=== PATIENT | female | born 1960 | race Caucasian/White ===

== ENCOUNTER 2023-07-09 13:33 | Inpatient (IN) | payer OTHER ==
--- OUTSIDE RECORDS SUMMARY | 2023-07-09 13:39 | XMS REPORT | Continuity of Care Document ---
:1960 Author Organization [facility] t Address [address] [place] [address]. [address] [place] [address] Care Team Providers Name Role Phone ALTAF CORNELL Primary Care Physician Unavailable January Bojorquez RN Attending Clinician Unavailable KEVIN DORAN Attending Clinician Unavailable Kevin Doran DDS Attending Clinician JAKE ORTIZ Attending Clinician Unavailable Jake James Attending Clinician NÉSTOR BAUM Attending Clinician Unavailable Néstor Baum MD Attending Clinician JANIE FELDMAN Attending Clinician Unavailable Sabiha Phoenix MD Attending Clinician Bert Farley RN Attending Clinician Unavailable Amarjit Hernandez DO Attending Clinician Alka Valle MD Attending Clinician AMARJIT HERNANDEZ Attending Clinician Unavailable Doctor Unassigned, [place] Attending Clinician Unavailable KEVIN DORAN Admitting Clinician Unavailable Kevin Doran DDS Admitting Clinician Alka Valle MD Admitting Clinician ALKA VALLE Admitting Clinician Unavailable Payers Payer Name Policy Type Policy Number Effective Date Expiration Date S ource MEDICARE PART A [id number] 2016 \\T\\ B 00:00:00 Problems Condition Condition Condition Status Onset Resolution Last Treating Co mments Source Name Details Category Date Date Treatment Clinician Date Cellulitis Cellulitis Disease Active U nivers and and 4-14 ity of abscess [place] oral soft oral soft 00 [place] tissues tissues Branch Swelling Swelling Disease Active Overview: Un [place] of of 4-13 Formatt[place] ity of mandible mandible 00:00: g of this Adolfo as 00 note Medical might be Branch different from the original. 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 00:00: 00 Medical Branch Flushing Flushing Disease Active Unive rs 8-16 ity of 00:00: [place] 00 Medical Branch Weight Weight Disease Active Univers loss loss 8-16 ity of 00:00: [place] 00 Medical Branch Postmenopa Postmenopa Disease Active U nivers use use 8-16 ity of 00:00: [place] 00 Medical Branch Allergies, Adverse Reactions, Alerts Allergy Allergy Status Severity Reaction(s) Onset Inactive Treating Comm ents Source Name Type Date Date Clinician LISINOPR DRUG Active Other-Cmnt 2018-11 Univ ers [place] INGREDI 0-18 ity of 00:00: [place] 00 Medical Branch Lisinopr Propensi Active Other - See 2018-11 Severe U nivers il ty to comments 0-18 [place] ity o f adverse 00:00: a [place] reaction Medical s Branch PENICILL Drug Active Swelling Univer s INS Class 8-16 ity of 00:00: [place] 00 Medical Branch Penicill Propensi Active Swelling Univ ers ins ty to 8-16 ity of adverse 00:00: [place] reaction 00 Medical s Branch Social History Social Habit Start Date Stop Date Quantity Comments Source Exposure to Not sure University SARS-CoV-2 [place] [facility] (event) Branch Alcohol intake 2022-03-08 2022-03-08 Ex-drinker [place] of 00:00:00 00:00:00 (finding) [place] [facility] Tobacco use and 2021-01-02 2021-01-02 Current user Univers ity of exposure 00:00:00 00:00:00 [place] [facility] History SDOH 2021-01-02 2021-01-02 3 University o f Financial 00:00:00 00:00:00 [facility] Branch History SDOH Food 2021-01-02 2021-01-02 2 Univers ity of Worry 00:00:00 00:00:00 [facility] Branch History SDOH Food 2021-01-02 2021-01-02 2 Univers ity of Scarcity 00:00:00 00:00:00 [place] [facility] History [facility] 2021-01-02 2021-01-02 1 University o f Transport Med 00:00:00 00:00:00 [facility] [place] [facility] al Branch History [facility] 2021-01-02 2021-01-02 1 [place] o f Transport Non-Med 00:00[facility]00 [facility] Comment 2021-01-02 2021-01-02 Former smoker Univ sity of 00:00:00 00:00:00 who recently [place] [facility] started again [place] Sex Assigned At [birth year] Universit y of 00:00:00 00:00:00 [place] [facility] Smoking Status Start Date Stop Date Source Light tobacco smoker 2021-01-02 00:00:00 Univers ity [facility] Former smoker 2020-06-12 00:00:00 2020-06-12 00:00:00 Universi ty [facility] Medications Ordered Filled Start Stop Current Ordering Indication Dosage Frequency Signature Comments Components Source Medication Medication Date Date Medication? Clinician (SIG) Name Name PARoxetine Yes 30mg Take 30 mg U nivers (PAXIL) 20 4-15 by mouth ity o f mg tablet 14:53: daily. [place] 40 [facility] budesonide- Yes 2{puff} Inhale 2 Univers formoterol 4-15 Puffs 2 ity of (SYMBICORT) 14:53: (two) [place] 80-4.5 40 times Medical mcg/actuati daily. Branch on inhaler albuterol-i Yes 1{puff} Inhale 1 Univers pratropium 4-15 Puff 4 ity of (COMBIVENT 14:53: (four) [place] RESPIMAT) 40 times Medical 20-100 daily. Branch mcg/actuati on inhaler Iron-Vit Yes [facility] 4-15 mouth. ity of [id number] 14:53: [place] Acid (IRON 40 Medical 100 PLUS) Branch 100-250-25- 1 mg-mg-mcg-m g per tablet ibuprofen Yes 600mg Take 600 Uni vers 600 mg 4-15 mg by ity of tablet 14:53: mouth [place] 40 daily. Medical Branch traZODone Yes 100mg Take 100 Uni vers 100 mg 4-15 mg by ity of tablet 14:53: mouth at [place] 40 bedtime. Medical Branch PARoxetine Yes 30mg Take 30 mg U nivers (PAXIL) 20 4-15 by mouth ity o f mg tablet 14:53: daily. [place] 40 Medical Branch budesonide- Yes 2{puff} Inhale 2 Univers formoterol 4-15 Puffs 2 ity of (SYMBICORT) 14:53: (two) [place] 80-4.5 40 times Medical mcg/actuati daily. Branch on inhaler albuterol-i Yes 1{puff} Inhale 1 Univers pratropium 4-15 Puff 4 ity of (COMBIVENT 14:53: (four) [place] RESPIMAT) 40 times Medical 20-100 daily. Branch mcg/actuati on inhaler Iron-Vit Yes [facility] C-Vit 4-15 mouth. ity of [id number]-[id number] 14:53: [place] Acid (IRON 40 Medical 100 PLUS) Branch 100-250-25- 1 mg-mg-mcg-m g per tablet ibuprofen Yes 600mg Take 600 Uni vers 600 mg 4-15 mg by ity of tablet 14:53: mouth [place] 40 daily. Medical Branch traZODone Yes 100mg Take 100 Uni vers 100 mg 4-15 mg by ity of tablet 14:53: mouth at [place] 40 bedtime. Medical Branch PARoxetine Yes 30mg Take 30 mg U nivers (PAXIL) 20 4-15 by mouth ity o f mg tablet 14:53: daily. [place] 40 Medical Branch budesonide- Yes 2{puff} Inhale 2 Univers formoterol 4-15 Puffs 2 ity of (SYMBICORT) 14:53: (two) [place] 80-4.5 40 times Medical mcg/actuati daily. Branch on inhaler albuterol-i Yes 1{puff} Inhale 1 Univers pratropium 4-15 Puff 4 ity of (COMBIVENT 14:53: (four) [place] RESPIMAT) 40 times Medical 20-100 daily. Branch mcg/actuati on inhaler Iron-Vit Yes Take by Univ s C-Vit 4-15 mouth. ity of [id number]-[id number] 14:53: [place] Acid (IRON 40 Medical 100 PLUS) Branch 100-250-25- 1 mg-mg-mcg-m g per tablet ibuprofen Yes 600mg Take 600 Uni vers 600 mg 4-15 mg by ity of tablet 14:53: mouth [place] 40 daily. Medical Branch traZODone Yes 100mg Take 100 Uni vers 100 mg 4-15 mg by ity of tablet 14:53: mouth at [place] 40 bedtime. Medical Branch nicotine Yes 1{patch 1 Patch, Un [place]dal[place] (NICODERM) -15 } Topical, ity o f 7 mg/24 hr 04:30: Administer [place] patch 1 00 over 24 Medical Patch Hours, Branch Q24H, First dose (after last modificati on) on Fri03/07/22 at 2330, Until Discontinu ed, Routine nicotine 202- No 1{patch 1 Patch, U nivers (NICODERM) 4-15 04-15 } Topical, ity of 7 mg/24 hr 04:30: 21:53 Administer [place] patch 1 00 :42 over 24 Medical Patch Hours, Branch Q24H, First dose (after last modificati on) on Fri03/07/22 at 2330, Until Discontinu ed, Routine chlorhexidi 2021- No [id number] 15mL Swish and Univers ne 0.12 % 4-15 04-30 spit out ity o f mouthwash 00:00: 04:59 15 mL 2 [place] 00 :00 (two) Medical times Branch daily for 14 days. chlorhexidi 2021- No [id number] 15mL Swish and Univers ne 0.12 % 4-15 04-30 spit out ity o f mouthwash 00:00: 04:59 15 mL 2 [place] 00 :00 (two) Medical times Branch daily for 14 days. chlorhexidi 2021- No [id number] 15mL Swish and Univers ne 0.12 % 4-15 04-30 spit out ity o f mouthwash 00:00: 04:59 15 mL 2 [place] 00 :00 (two) Medical times Branch daily for 14 days. clindamycin 2021- No [id number] 300mg Take 1 Univers 300 mg 4-15 -23 capsule by ity of capsule 00:00: 04:59 mouth 4 [place] 00 :00 (four) Medical times Branch daily for 7 days. clindamycin 2021- No [id number] 300mg Take 1 Univers 300 mg 4-15 -23 capsule by ity of capsule 00:00: 04:59 mouth 4 [place] 00 :00 (four) Medical times Branch daily for 7 days. clindamycin 2021- No [id number] 300mg Take 1 Univers 300 mg 4-15 -23 capsule by ity of capsule 00:00: 04:59 mouth 4 [place] 00 :00 (four) Medical times Branch daily for 7 days. HYDROcodone 2021- No 4647 1{tbl} Take 1 U nivers -acetaminop 4-15 04-20 tablet by it y of hen 5-325 00:00: 04:59 mouth [place] mg tablet 00 :00 every 6 Medical (six) Branch hours as needed for Pain (scale 4-6) for up to 4 days. Indication s: acute pain HYDROcodone No 4647 1{tbl} Take 1 U nivers -acetaminop 4-15 04-20 tablet by it y of hen 5-325 00:00: 04:59 mouth [place] mg tablet 00 :00 every 6 Medical (six) Branch hours as needed for Pain (scale 4-6) for up to 4 days. Indication s: acute pain HYDROcodone 2021- No 4647 1{tbl} Take 1 U nivers -acetaminop 03-08-20 tablet by it y of hen 5-325 00:00: 04:59 mouth [place] mg tablet 00 :00 every 6 Medical (six) Branch hours as needed for Pain (scale 4-6) for up to 4 days. Indication s: acute pain lactated Yes 1000mL at 75 Univer s ringers IV 4-14 mL/hr, ity of infusion 23:30: 1,000 mL, [place] 1,000 mL 00 IV Medical Infusion, Branch CONTINUOUS , Starting on [place] 03/07/22 at 1830, Until Discontinu ed, Routine, PACU lactated 2021- No 1000mL at 75 Unive rs ringers IV 03-07-15 mL/hr, ity of infusion 23:30: 21:53 1,000 mL, [place] as 1,000 mL 00 :42 IV Medical Infusion, Branch CONTINUOUS , Starting on [place] 03/07/22 at 1830, Until 03/08/22 at 1653, Routine, PACU HYDROmorphO 2021- No .2mg 0.2 mg, Un [place]dalena ne 03-07- Slow IV ity of (DILAUDID) 23:26: 00:41 Push, [place] injection 03 :00 Q5MIN PRN, Medi [place] 0.2 mg 10 doses, Branch Starting on [place] 03/07/22 at 1826, Until Discontinu ed, Routine, Pain (scale 7-10), PACU
Us e approved by (Faculty): PACU USE -ANESTHESI A SERVICE-HY DROMORPHON E INJECTIONS gabapentin Yes 300mg 300 mg, Uni vers (NEURONTIN) 4-14 Oral, ity of capsule 300 14:00: DAILY, [place] mg 00 First dose Medical on [place] Branch 03/07/22 at 0900, Until Discontinu ed, Routine gabapentin 2021- No 300mg 300 mg, Un [place] (NEURONTIN) 03-07-15 Oral, ity of capsule 300 14:00: 21:53 DAILY, [place] mg 00 :42 First dose Medical on [place] Branch 03/07/22 at 0900, Until Discontinu ed, Routine chlorhexidi 0 Yes 15mL 15 mL, Univ ers ne 4-14 Oral ity of (PERIDEX) 13:00: ([place] 0.12 % 00 Spit Out), Medical mouthwash BID, First Bran ch 15 mL dose on [place] 03/07/22 at 0800, Until Discontinu ed, Routine budesonide- 0 Yes 2{puff} 2 Puff, Univers formoteroL -14 Inhalation ity of (SYMBICORT) 13:00: , BID, [place] 80-4.5 00 First dose Medical mcg/actuati on [facility] Branch on inhaler 03/07/22 at 2 Puff 0800, Until Discontinu ed, Routine chlorhexidi 2021- No 15mL 15 mL, Uni vers ne 14 04-15 Oral ity of (PERIDEX) 13:00: 21:53 ([place] 0.12 % 00 :42 Spit Out), Medical mouthwash BID, First Bran ch 15 mL dose on [place] 03/07/22 at 0800, Until Discontinu ed, Routine budesonide- 0 2- No 2{puff} 2 Puff, Univers formoteroL 03-07 04-15 Inhalation it y of (SYMBICORT) 13:00: 21:53 , BID, [place] 80-4.5 00 :42 First dose Medical mcg/actuati on [facility] Branch on inhaler 03/07/22 at 2 Puff 0800, Until Discontinu ed, Routine lactated 0 2021- No 1000mL at 100 [facility] ers ringers IV 03-07 04-14 mL/hr, ity of infusion 10:45: 23:28 1,000 mL, [place] 1,000 mL 00 :48 IV Medical Infusion, Branch CONTINUOUS , Starting on [place] 03/07/22 at 0545, Until [facility] 03/07/22 at 1828, Routine naloxone Yes .1mg 0.1 mg, Univer s (NARCAN) 14 Slow IV ity of injection 10:34: Push, PRN [place] 0.1 mg 53 - SEE Medical INSTRUCTIO Branch NS, Starting on [place] 03/07/22 at 0534, Until Discontinu ed, Routine, Sedation/R espiratory Depression , See admin instructio ns. morpHINE 2021- No 2mg 2 mg, Slow Un [place] injection 2 03-0716 IV Push, ity of mg 10:34: 10:33 Q3HPRN, [place] 53 :53 Starting Medical on [facility] Branch 03/07/22 at 0534, Until 03/09/22 at 0533, Routine, Pain (scale 7-10) naloxone 2021- No .1mg 0.1 mg, Unive rs (NARCAN) 03-07 Slow IV ity of injection 10:34: 21:53 Push, PRN [place] 0.1 mg 53 :42 - SEE Medical INSTRUCTIO [place] NS, Starting on [place] 03/07/22 at 0534, Until 03/08/22 at 1653, Routine, Sedation/R espiratory Depression , See admin instructio ns. morpHINE 2021- No 2mg 2 mg, Slow Un [place] injection 2 03-07 IV Push, ity of mg 10:34: 21:53 Q3HPRN, [place] 53 :42 Starting Medical on [facility] Branch 03/07/22 at 0534, Until 03/08/22 at 1653, Routine, Pain (scale 7-10) HYDROcodone Yes 1{tbl} 1 tablet, Univers -acetaminop 4-14 Oral, ity of hen (NORCO 10:34: Q6HPRN, [place] 5) 5-325 mg 50 Starting Medi [place] tablet 1 on [facility] tablet 03/07/22 at 0534, Until Discontinu ed, Routine, Pain (scale 4-6) HYDROcodone 0 2021- No 1{tbl} 1 tablet, Univers -acetaminop 4-07 03-15 Oral, ity of hen (NORCO 10:34: 21:53 Q6HPRN, [place] 5) 5-325 mg 50 :42 Starting Medi [place] tablet 1 on [facility] tablet 03/07/22 at 0534, Until 03/08/22 at 1653, Routine, Pain (scale 4-6) ibuprofen Yes 600mg 600 mg, Univ ers (ADVIL 4-14 Oral, ity of CHILDREN'S) 10:34: Q6HPRN, [place] 100 mg/5 mL 45 Starting Medi [place] oral on [facility] Branch suspension 03/07/22 at 600 mg 0534, Until Discontinu ed, Routine, Pain (scale 1-3) ibuprofen 2021- No 600mg 600 mg, Uni vers (ADVIL 03-07-15 Oral, ity of CHILDREN'S) 10:34: 21:53 Q6HPRN, [place] 100 mg/5 mL 45 :42 Starting Medi [place] oral on [facility] Branch suspension 03/07/22 at 600 mg 0534, Until 03/08/22 at 1653, Routine, Pain (scale 1-3) ondansetron Yes 4mg 4 mg, Slow Univers (ZOFRAN 4-14 IV Push, ity of (PF)) 10:34: Q4HPRN, [place] injection 4 43 Starting Medi [place] mg on [facility] Branch 03/07/22 at 0534, Until Discontinu ed, Routine, Nausea and Vomiting (N/V) ondansetron 2021- No 4mg 4 mg, Slow Univers (ZOFRAN 03-07-15 IV Push, ity of (PF)) 10:34: 21:53 Q4HPRN, [place] injection 4 43 :42 Starting Medi [place] mg on [facility] Branch 03/07/22 at 0534, Until Fri03/08/22 at 1653, Routine, Nausea and Vomiting (N/V) nicotine Yes 1{patch 1 Patch, Un [place] (NICODERM) 03-07 } Topical, ity o f 7 mg/24 hr 05:15: Administer [place] patch 1 00 over 24 Medical Patch Hours, Branch Q24H, First dose on [facility] 03/07/22 at 0015, Until Discontinu ed, Routine iopamidol 0 2021- No [id number] 100mL 100 mL, Univers (ISOVUE 03-0714 Intravenou ity o f 370-500 mL) 03:45: 02:37 s, ONCE, 1 [place] injection 00 :00 dose, On Medica l 100 mL Wed Branch 03/06/22 at 2245, Routine ipratropium 2020-11 Yes 3mL 3 mL, Unive rs -albuteroL 11-24 Inhalation ity of (DUONEB) 13:00: , QID, [place] 0.5 mg-3 00 First dose Medic al mg(2.5 mg on Mon Branch base)/3 mL 09/24/21 at nebulizer 0800, solution 3 Until mL Discontinu ed, Routine ipratropium 2020-11 Yes 3mL 3 mL, Unive rs -albuteroL 11-24 Inhalation ity of (DUONEB) 13:00: , QID, [place] 0.5 mg-3 00 First dose Medic al mg(2.5 mg on Mon Branch base)/3 mL 09/24/21 at nebulizer 0800, solution 3 Until mL Discontinu ed, Routine iohexol 2020-11- No [id number] 100mL 100 mL, Univers (OMNIPAQUE 11-24 Intravenou it y of 350 05:30: 05:21 s, ONCE, 1 [place] BULK-100 00 :00 dose, On Medical mL) Mon Branch injection 09/24/21 at 100 mL 0030, Routine methylpredn 2020-11- No 125mg 125 mg, IV Univers isolone sod 11-24 Piggyback, i ty of succ 04:30: 03:27 ONCE, 1 [place] (SOLU-MEDRO 00 :00 dose, On Medi [place] L) Sun Branch injection 09/23/21 125 mg at 2330, STAT HYDROcodone 2020- No 1{tbl} 1 tablet, [facility] -acetaminop 07-17 08-24 Oral, ity of hen (NORCO) 02:33: 02:37 ONCE, 1 [place] 10-325 mg 00 :00 dose, Mon Medic al tablet 1 07/16/21 at Bran h tablet 2145, Routine methylPREDN 0 Yes [id number] Take by Univers ISolone 4 07-16 9107 mouth ity of mg tablets 00:00: SEE-INSTRU [place] 00 CTIONS. Medical follow Branch package directions methylPREDN 0 Yes [id number] Take by Univers ISolone 4 07-16 9107 mouth ity of mg tablets 00:00: SEE-INSTRU [place] 00 CTIONS. Medical follow Branch package directions methylPREDN 2020-0 Yes [id number] Take by [facility] 4 07-16 9107 mouth ity of mg tablets 00:00: SEE-INSTRU [place] 00 CTIONS. Medical follow Branch package directions methylPREDN 2020-0 Yes [id number] Take by [facility] 4 07-1607 mouth ity of mg tablets 00:00: SEE-INSTRU [place] 00 CTIONS. Medical follow Branch package directions methylPREDN 2020-0 Yes [id number] Take by [facility] 4 07-1607 mouth ity of mg tablets 00:00: SEE-INSTRU [place] 00 CTIONS. Medical follow Branch package directions methylPREDN 2020-0 Yes [id number] Take by [facility] 4 07-1607 mouth ity of mg tablets 00:00: SEE-INSTRU [place] 00 CTIONS. Medical follow Branch package directions HYDROcodone 2020- No [id number] 1{tbl} Take 1 U nivers -acetaminop 07-16 tablet by it y of hen (NORCO) 00:00: 04:59 mouth [place] 7.5-325 mg 00 :00 every 8 Medica l per tablet (eight) Branch hours as needed for Pain for up to 7 days. Indication s: acute pain omeprazole Yes 20mg 20 mg, Unive rs (PRILOSEC) 01-05 Oral, ity of capsule 20 15:00: DAILY, [place] mg 00 First dose Medical on Fri Branch 01/05/21 at 0900, Until Discontinu ed, Routine predniSONE 2020- No 40mg 40 mg, Univ ers (DELTASONE) 01-05 Oral, ity of tablet 40 15:00: 14:59 DAILY, 5 [place] mg 00 :00 doses, Medical First dose Branch on Fri01/05/21 at 0900, Last dose on Fri01/09/21 at 0900, Routine predniSONE 2020- No [id number] 40mg Take 2 Univers 20 mg 01-0518 tablets by ity of tablet 00:00: 05:59 mouth [place] 00 :00 daily for Medical 5 days. Branch predniSONE 2020- No [id number] 40mg Take 2 Univers 20 mg 2-12 02-18 tablets by ity of tablet 00:00: 05:59 mouth [place] 00 :00 daily for Medical 5 days. Branch PARoxetine Yes 30mg Take 30 mg U nivers (PAXIL) 20 2-11 by mouth ity o f mg tablet 21:15: daily. [place] [address] Medical Branch budesonide- Yes 2{puff} Inhale 2 Univers formoterol 2-11 Puffs 2 ity of (SYMBICORT) 21:15: (two) [place] 80-4.5 31 times Medical mcg/actuati daily. Branch on inhaler albuterol-i Yes 1{puff} Inhale 1 Univers pratropium 2-11 Puff 4 ity of (COMBIVENT 21:15: (four) [place] RESPIMAT) 31 times Medical 20-100 daily. Branch mcg/actuati on inhaler Iron-Vit Yes Take by Univ s C-Vit 2-11 mouth. ity of I77-Mapkh 21:15: [place] Acid (IRON 31 Medical 100 PLUS) Branch 100-250-25- 1 mg-mg-mcg-m g per tablet ibuprofen Yes 600mg Take 600 Uni vers 600 mg 2-11 mg by ity of tablet 21:15: mouth [place] 31 daily. Medical Branch traZODone Yes 100mg Take 100 Uni vers 100 mg 2-11 mg by ity of tablet 21:15: mouth at [place] [address] bedtime. Medical Branch PARoxetine Yes 30mg Take 30 mg U nivers (PAXIL) 20 2-11 by mouth ity o f mg tablet 21:15: daily. [place] [address] Medical Branch budesonide- Yes 2{puff} Inhale 2 Univers formoterol 2-11 Puffs 2 ity of (SYMBICORT) 21:15: (two) [place] 80-4.5 31 times Medical mcg/actuati daily. Branch on inhaler albuterol-i Yes 1{puff} Inhale 1 Univers pratropium 2-11 Puff 4 ity of (COMBIVENT 21:15: (four) [place] RESPIMAT) 31 times Medical 20-100 daily. Branch mcg/actuati on inhaler Iron-Vit Yes Take by [facility] C-Vit 2-11 mouth. ity of [id number]-Vbvjc 21:15: [place] Acid (IRON 31 Medical 100 PLUS) Branch 100-250-25- 1 mg-mg-mcg-m g per tablet ibuprofen Yes 600mg Take 600 Uni vers 600 mg 2-11 mg by ity of tablet 21:15: mouth [place] 31 daily. Medical Branch traZODone Yes 100mg Take 100 Uni vers 100 mg 2-11 mg by ity of tablet 21:15: mouth at [place] [address] bedtime. Medical Branch PARoxetine Yes 30mg Take 30 mg U nivers (PAXIL) 20 2-11 by mouth ity o f mg tablet 21:15: daily. [place] [address] Medical Branch budesonide- Yes 2{puff} Inhale 2 Univers formoterol 2-11 Puffs 2 ity of (SYMBICORT) 21:15: (two) [place] 80-4.5 31 times Medical mcg/actuati daily. Branch on inhaler albuterol-i Yes 1{puff} Inhale 1 Univers pratropium 2-11 Puff 4 ity of (COMBIVENT 21:15: (four) [place] RESPIMAT) 31 times Medical 20-100 daily. Branch mcg/actuati on inhaler Iron-Vit Yes Take by [facility] C-Vit 2-11 mouth. ity of A52-Hmetu 21:15: [place] Acid (IRON 31 Medical 100 PLUS) Branch 100-250-25- 1 mg-mg-mcg-m g per tablet ibuprofen Yes 600mg Take 600 Uni vers 600 mg 2-11 mg by ity of tablet 21:15: mouth [place] 31 daily. Medical Branch traZODone Yes 100mg Take 100 Uni vers 100 mg 2-11 mg by ity of tablet 21:15: mouth at [place] [address] bedtime. Medical Branch levoFLOXaci 2020- No 500mg 500 mg, U nivers n 2-11 02-16 Oral, Q24H ity of (LEVAQUIN) 20:15: 20:14 ABX, 5 [place] tablet 500 00 :00 doses, Medical mg First dose Branch on 01/04/21 at 1415, Last dose on 01/08/21 at 1415, KELLEN
Re ason for Anti-Infec tive: Empiric Therapy for Suspected Infection< br>Empiric Therapy Site: Urine
D uration of therapy: 72 hours albuterol-i Yes 1{puff} 1 Puff, Univers pratropium 2-11 Inhalation ity of (COMBIVENT 18:00: , QID, [place] RESPIMAT) 00 First dose Medi [place] 20-100 on [place] Branch mcg/actuati 01/04/21 at on inhaler 1200, 1 Puff Until Discontinu ed, Routine
Is this order for a patient with suspected or confirmed COVID-19 infection? No
Does this order have Pulmonary/ Critical Care approval? Yes PARoxetine Yes 30mg Take 30 mg U nivers (PAXIL) 20 2-11 by mouth ity o f mg tablet 15:15: daily. [place] [address] Medical Branch budesonide- Yes 2{puff} Inhale 2 Univers formoterol 2-11 Puffs 2 ity of (SYMBICORT) 15:15: (two) [place] 80-4.5 31 times Medical mcg/actuati daily. Branch on inhaler albuterol-i Yes 1{puff} Inhale 1 Univers pratropium 2-11 Puff 4 ity of (COMBIVENT 15:15: (four) [place] RESPIMAT) 31 times Medical 20-100 daily. Branch mcg/actuati on inhaler Iron-Vit Yes Take by [facility] C-Vit 2-11 mouth. ity of Y79-Foiaj 15:15: [place] Acid (IRON 31 Medical 100 PLUS) Branch 100-250-25- 1 mg-mg-mcg-m g per tablet ibuprofen Yes 600mg Take 600 Uni vers 600 mg 2-11 mg by ity of tablet 15:15: mouth [place] [address] daily. Medical Branch traZODone Yes 100mg Take 100 Uni vers 100 mg 2-11 mg by ity of tablet 15:15: mouth at [place] [address] bedtime. Medical Branch PARoxetine Yes 30mg Take 30 mg U nivers (PAXIL) 20 2-11 by mouth ity o f mg tablet 15:15: daily. [place] [address] Medical Branch budesonide- Yes 2{puff} Inhale 2 Univers formoterol 2-11 Puffs 2 ity of (SYMBICORT) 15:15: (two) [place] 80-4.5 31 times Medical mcg/actuati daily. Branch on inhaler albuterol-i Yes 1{puff} Inhale 1 Univers pratropium 2-11 Puff 4 ity of (COMBIVENT 15:15: (four) [place] RESPIMAT) 31 times Medical 20-100 daily. Branch mcg/actuati on inhaler Iron-Vit Yes Take by Univ s C-Vit 2-11 mouth. ity of E75-[id number] 15:15: [place] Acid (IRON 31 Medical 100 PLUS) [place] 100-250-25- 1 mg-mg-mcg-m g per tablet ibuprofen Yes 600mg Take 600 Uni vers 600 mg 2-11 mg by ity of tablet 15:15: mouth [place] [address] daily. Medical Branch traZODone Yes 100mg Take 100 Uni vers 100 mg 2-11 mg by ity of tablet 15:15: mouth at [place] [address] bedtime. Medical Branch phenazopyri 2020- No 200mg 200 mg, U nivers dine 01-04 Oral, ity of (PYRIDIUM) 08:45: 14:44 ONCE, 1 [place] as tablet 200 00 :00 dose, [facility] [place] mg 01/04/21 at Branch 0245, Routine levoFLOXaci 2020- No [id number] 500mg Take 1 Univers n 500 mg 01-04 tablet by ity o f tablet 00:00: 05:59 mouth [place] 00 :00 every 24 Medical (- Branch ur) hours for 5 days. levoFLOXaci 2020- No [id number] 500mg Take 1 Univers n 500 mg 01-04 tablet by ity o f tablet 00:00: 05:59 mouth [place] 00 :00 every 24 Medical (twenty- Branch ur) hours for 5 days. levoFLOXaci 2020- No 500mg 500 mg, IV Univers n in D5W 01-03 Piggyback, ity of (LEVAQUIN) 21:00: 19:04 Administer [place] 500 mg/100 00 :11 over 60 Medica l mL Minutes, [place] Piggyback Q24H ABX, 500 mg First dose on [facility] 01/03/21 at 1500, Until Discontinu ed, Routine
Reason for Anti-Infec tive: Empiric Therapy for Suspected Infection< br>Empiric Therapy Site: Respirator y
Durat ion of therapy: 7 days iohexol No 120mL 120 mL, Unive rs (OMNIPAQUE 01-03 Intravenou it y of 350 17:30: 17:30 s, ONCE, 1 [place] BULK-150 00 :00 dose, [facility] Medica l mL) 01/03/21 at [place] injection 1145, 120 mL Routine PARoxetine Yes 30mg 30 mg, Unive rs (PAXIL) 2-10 Oral, ity of tablet 30 15:00: DAILY, [place] mg 00 First dose Medical on [facility] 01/03/21 at 0900, Until Discontinu ed, Routine ibuprofen Yes 600mg 600 mg, Univ ers (IBU) 2-10 Oral, ity of tablet 600 15:00: DAILY, [place] mg 00 First dose Medical on [facility] 01/03/21 at 0900, Until Discontinu ed, Routine gabapentin Yes 300mg 300 mg, Uni vers (NEURONTIN) 2-10 Oral, ity of capsule 300 15:00: DAILY, [place] 00 First dose Medical on [facility] 01/03/21 at 0900, Until Discontinu ed, Routine traMADoL Yes 50mg 50 mg, Univers (ULTRAM) 2-10 Oral, QID, ity o f tablet 50 14:00: [place] dose [place] 00 on [facility] Medical 01/03/21 at Branch 0800, Until Discontinu ed, Routine albuterol-i 2020- No 1{puff} 1 Puff, Univers pratropium 01-03 Inhalation it y of (COMBIVENT 14:00: 15:15 , QID, [place] RESPIM[place]) 00 :34 First dose Medi [place] 20-100 on [facility] mcg/actuati 01/03/21 at on inhaler 0800, 1 Puff Until Discontinu ed, Routine
Is this order for a patient with suspected or confirmed COVID-19 infection? Yes traZODone Yes 100mg 100 mg, [facility] ers (DESYREL) 2-10 Oral, ity of tablet 100 05:27: QHSPRN, [place] 37 Starting Medical Fri01/02/21 Branch at 2327, Until Discontinu ed, Routine, Insomnia budesonide- 0 Yes 2{puff} 2 Puff, Univers formoteroL 2-10 Inhalation ity of (SYMBICORT) 03:45: , BID, [place] 160-4.5 00 First dose Medica l mcg/actuati on Fri on inhaler 01/02/21 at 2 Puff 2145, Until Discontinu ed, Routine ibuprofen Yes 600mg 600 mg, [facility] ers (IBU) 2-10 Oral, ity of tablet 600 02:57: Q6HPRN, [place] mg 07 Starting Medical Fri01/02/21 Branch at 2057, Until Discontinu ed, Routine, Pain (scale 4-6) enoxaparin Yes 40mg 40 mg, [facility] rs (LOVENOX) 209 Subcutaneo ity of injection 23:00: [place], [place]ILY, [place] 40 mg 00 First dose Medical on Fri Branch 01/02/21 at 1700, Until Discontinu ed, Routine codeine-gua Yes 10mL 10 mL, [facility] ers ifenesin 209 Oral, ity of (ROBITUSSIN 22:47: Q6HPRN, [place] as AC) 10-100 44 Starting Medic al mg/5 mL Fri01/02/21 Branch solution 10 at 1647, mL Until Discontinu ed, Routine, Cough ipratropium Yes 2{puff} 2 Puff, Univers (ATROVENT 2-09 Inhalation ity of HFA) 22:47: , Q6HPRN, [place] inhaler 2 44 Starting Medica l Puff Fri01/02/21 Branch at 1647, Until Discontinu ed, Routine, Shortness of Breath, Wheezing, Bronchospa sm, Chest tightness< br>Is this order for a patient with suspected or confirmed COVID-19 infection? Yes albuterol Yes 2{puff} 2 Puff, Un [place] (VENTOLIN) 209 Inhalation ity of inhaler 2 22:47: , Q6HPRN, [place] as Puff 44 Starting Medical [facility] 01/02/21 Branch at 1647, Until Discontinu ed, Routine, Wheezing, Shortness of Breath, Bronchospa sm, Chest tightness< br>Is this order for a patient with suspected or confirmed COVID-19 infection? Yes ondansetron Yes 4mg 4 mg, Slow Univers (ZOFRAN 01-02 IV Push, ity of (PF)) 22:47: Q6HPRN, [place] injection 4 44 Starting Medi [place] mg [facility] 01/02/21 Branch at 1647, Until Discontinu ed, Routine, Nausea and Vomiting (N/V) sennosides Yes 8.6mg 8.6 mg, Uni vers (SENOKOT) 2 Oral, ity of tablet 8.6 22:47: BIDPRN, [place] mg 44 Starting Medical [facility] 01/02/21 Branch at 1647, Until Discontinu ed, Routine, Constipati on acetaminoph Yes 650mg 650 mg, Un [place] en 209 Oral, ity of (TYLENOL) 22:47: Q6HPRN, [place] tablet 650 43 Starting Medic al mg [facility] 01/02/21 Branch at 1647, Until Discontinu ed, Routine, Pain (scale 1-3), Temp > 38.5 C azithromyci 202- No 500mg 500 mg, IV Univers n 01-02 02-10 Piggyback, ity of (ZITHROMAX) 21:00: 08:01 Q24H ABX, [place] 500 mg in 00 :07 First dose Medi [place] NaCl 0.9% on Fri Branch (NS) 250 mL 01/02/21 at VIAL-MATE 1500, IV Until piggyback Discontinu ed, 250 mL
R frank for Anti-Infec tive: Empiric Therapy for Suspected Infection< br>Empiric Therapy Site: Respirator y
Durat ion of therapy: 72 hours cefTRIAXone 0 2020- No 1000mg 1,000 mg, Univers (ROCEPHIN) 01-02 02-09 IV ity of 1,000 mg in 21:00: 20:50 Piggyback, [place] NaCl 0.9% 00 :00 ONCE, 1 Medical (NS) 50 mL dose, Shannan Martinez ch MINI-BAG 01/02/21 at 1500, 50 mL
Reas on for Anti-Infec tive: Empiric Therapy for Suspected Infection< br>Empiric Therapy Site: Respirator y
Durat ion of therapy: 72 hours PARoxetine 2018-11 Yes 20mg Take 20 mg U nivers (PAXIL) 20 0-18 by mouth ity o f mg tablet 20:43: daily. [address] budesonide- 2018-11 Yes 2{puff} Inhale 2 Univers formoterol 0-18 Puffs 2 ity of (SYMBICORT) 20:43: (two) [place] 80-4.5 28 times Medical mcg/actuati daily. Branch on inhaler albuterol-i 2018-11 Yes 1{puff} Inhale 1 Univers pratropium 0-18 Puff 4 ity of (COMBIVENT 20:43: (four) [place] RESPIMAT) 28 times Medical 20-100 daily. Branch mcg/actuati on inhaler PARoxetine 2018-11 Yes 20mg Take 20 mg U nivers (PAXIL) 20 0-18 by mouth ity o f mg tablet 20:43: daily. [address] budesonide- 2018-11 Yes 2{puff} Inhale 2 Univers formoterol 0-18 Puffs 2 ity of (SYMBICORT) 20:43: (two) [place] 80-4.5 28 times Medical mcg/actuati daily. Branch on inhaler albuterol-i 2018-11 Yes 1{puff} Inhale 1 Univers pratropium 0-18 Puff 4 ity of (COMBIVENT 20:43: (four) [place] RESPIMAT) 28 times Medical 20-100 daily. Branch mcg/actuati on inhaler traMADOL 50 Yes 50mg Take 50 mg Univers mg tablet 7-31 by mouth 4 ity of 00:00: (four) [place] 00 times Medical daily. Branch traMADOL 50 Yes 50mg Take 50 mg Univers mg tablet - by mouth 4 ity of 00:00: (four) [place] 00 times Medical daily. Branch traMADOL 50 2016-0 Yes 50mg Take 50 mg Univers mg tablet - by mouth 4 ity of 00:00: (four) [place] 00 times Medical daily. Branch traMADOL 50 2016-0 Yes 50mg Take 50 mg Univers mg tablet - by mouth 4 ity of 00:00: (four) [place] 00 times Medical daily. Branch traMADOL 50 2016-0 Yes 50mg Take 50 mg Univers mg tablet - by mouth 4 ity of 00:00: (four) [place] 00 times Medical daily. Branch traMADOL 50 2016-0 Yes 50mg Take 50 mg Univers mg tablet 7- by mouth 4 ity of 00:00: (four) [place] 00 times Medical daily. Branch traMADOL 50 0 Yes 50mg Take 50 mg Univers mg tablet - by mouth 4 ity of 00:00: (four) [place] 00 times Medical daily. Branch traMADOL 50 2016-2021- No 50mg Take 50 mg Univers mg tablet 06-2315 by mouth 4 ity of 00:00: 00:00 (four) [place] 00 :00 times Medical daily. Branch traMADOL 50 2016-0 2021- No 50mg Take 50 mg Univers mg tablet 06-2315 by mouth 4 ity of 00:00: 00:00 (four) [place] 00 :00 times Medical daily. Branch gabapentin 2017-0 Yes 300mg Take 300 Un [place] 100 mg 7-17 mg by ity of capsule 00:00: mouth [place] 00 daily. Medical Branch gabapentin 2017-0 Yes 300mg Take 300 Un [place] 100 mg 7-17 mg by ity of capsule 00:00: mouth [place] 00 daily. Medical Branch gabapentin 2017-0 Yes 300mg Take 300 Un [place] 100 mg 7-17 mg by ity of capsule 00:00: mouth [place] 00 daily. Medical Branch gabapentin 2017-0 Yes 300mg Take 300 Un [place] 100 mg 7-17 mg by ity of capsule 00:00: mouth [place] 00 daily. Medical Branch gabapentin 2017-0 Yes 300mg Take 300 Un [place] 100 mg 7-17 mg by ity of capsule 00:00: mouth [place] 00 daily. Medical Branch gabapentin 2017-0 Yes 300mg Take 300 Un [place] 100 mg 7-17 mg by ity of capsule 00:00: mouth [place] 00 daily. Medical Branch gabapentin 2017-0 Yes 300mg Take 300 Un [place] 100 mg 7-17 mg by ity of capsule 00:00: mouth [place] 00 daily. Medical Branch gabapentin 2017-0 Yes 300mg Take 300 Un [place] 100 mg 7-17 mg by ity of capsule 00:00: mouth [place] 00 daily. Medical Branch gabapentin 2017-0 Yes 300mg Take 300 Un [place] 100 mg 7-17 mg by ity of capsule 00:00: mouth [place] 00 daily. Medical Branch gabapentin 2017-0 Yes 300mg Take 300 Un [place] 100 mg 7-17 mg by ity of capsule 00:00: mouth [place] 00 daily. Medical Branch Immunizations Ordered Filled Immunization Date Status Comments [facility] e Immunization Name Name Influenza Virus 2019-09-10 Completed Universit y of Vaccine [place] .5 mL 00:00:00 [facility] 6+ MO Branch Influenza Virus 2019-09-10 Completed Universit y of Vaccine [place] .5 mL 00:00:00 [facility] 6+ MO Branch Influenza Virus 2019-09-10 Completed Universit y of Vaccine [place] .5 mL 00:00:00 [facility] 6+ MO Branch Influenza Virus 2019-09-10 Completed Universit y of Vaccine [place] .5 mL 00:00:00 [facility] 6+ MO Branch Influenza Virus 2019-09-10 Completed Universit y of Vaccine [place] .5 mL 00:00:00 [facility] 6+ MO Branch Influenza Virus 2019-09-10 Completed Universit y of Vaccine [place] .5 mL 00:00:00 [facility] 6+ MO Branch Influenza Virus 2019-09-10 Completed Universit y of Vaccine [place] .5 mL 00:00:00 [facility] 6+ MO Branch Influenza Virus 2019-09-10 Completed Universit y of Vaccine [place] .5 mL 00:00:00 [facility] 6+ MO Branch Influenza Virus 2019-09-10 Completed Universit y of Vaccine [place] .5 mL 00:00:00 [facility] 6+ MO Branch Influenza Virus 2019-09-10 Completed Universit y of Vaccine [place] .5 mL 00:00:00 [facility] 6+ MO Branch Influenza Virus 2017-09-09 Completed Universit y of Vaccine 00:00:00 [place] [facility] Pneumococcal 13 2017-09-09 Completed Universit y of Conjugate, PCV13 00:00:[address] [facility] dical (Prevnar 13) Branch Influenza Virus 2017-09-09 Completed Universit y of Vaccine 00:00:00 [place] [facility] Pneumococcal 13 2017-09-09 Completed Universit y of Conjugate, PCV13 00:00:[address] [facility] dical (Prevnar 13) Branch Influenza Virus 2017-09-09 Completed Universit y of Vaccine 00:00:00 [place] [facility] Pneumococcal 13 2017-09-09 Completed Universit y of Conjugate, PCV13 00:00:[address] [facility] dical (Prevnar 13) Branch Influenza Virus 2017-09-09 Completed Universit y of Vaccine 00:00:00 [place] [facility] Pneumococcal 13 2017-09-09 Completed Universit y of Conjugate, PCV13 00:00:[address] [facility] dical (Prevnar 13) Branch Influenza Virus 2017-09-09 Completed Universit y of Vaccine 00:00:00 [place] [facility] Pneumococcal 13 2017-09-09 Completed Universit y of Conjugate, PCV13 00:00:[address] [facility] dical (Prevnar 13) [place] Influenza Virus 2017-09-09 Completed Universit y of Vaccine 00:00:00 [place] [facility] Pneumococcal 13 2017-09-09 Completed Universit y of Conjugate, PCV13 00:00:[address] [facility] dical (Prevnar 13) [place] Influenza Virus 2017-09-09 Completed Universit y of Vaccine 00:00:00 [place] [facility] Pneumococcal 13 2017-09-09 Completed Universit y of Conjugate, PCV13 00:00:[address] [facility] dical (Prevnar 13) [place] Influenza Virus 2017-09-09 Completed Universit y of Vaccine 00:00:00 [place] [facility] Pneumococcal 13 2017-09-09 Completed Universit y of Conjugate, PCV13 00:00:[address] [facility] dical (Prevnar 13) [place] Vital Signs Vital Name Observation Time Observation Value Comments Source Systolic blood 2022-03-08 16:28:00 130 mm[Hg] Univer sity of pressure [place] [facility] Diastolic blood 2022-03-08 16:28:00 93 mm[Hg] Unive rsity of pressure [place] [facility] Heart rate 2022-03-08 16:28:00 94 /min Universi ty [facility] Body temperature 2022-03-08 16:28:00 36.94 María Univ ersity of [place] [facility] Respiratory rate 2022-03-08 16:28:00 18 /min Univ ersity of [place] [facility] Oxygen saturation in 2022-03-08 16:28:00 93 /min University of Arterial blood by [place] [facility]i [place] Pulse oximetry Branch Body height 2022-03-07 12:35:00 160 cm Universi ty of [place] [facility] Body weight 2022-03-07 12:35:00 83.008 kg Universi ty of [place] [facility] BMI 2022-03-07 12:35:00 32.42 kg/m2 Universi ty of [place] [facility] Systolic blood 2022-03-08 00:45:00 167 mm[Hg] Univer sity of pressure [place] [facility] Diastolic blood 2022-03-08 00:45:00 86 mm[Hg] Unive rsity of pressure [place] [facility] Heart rate 2022-03-08 00:45:00 95 /min Universi ty of [place] [facility] Respiratory rate 2022-03-08 00:45:00 15 /min Univ ersity of [place] [facility] Oxygen saturation in 2022-03-08 00:45:00 93 /min University of Arterial blood by [facility] Pulse oximetry Branch Body temperature 2022-03-07 23:41:00 36.39 María Univ ersity of [place] [facility] Body height 2022-03-07 12:35:00 160 cm Universi ty of [place] [facility] Body weight 2022-03-07 12:35:00 83.008 kg Universi ty of [place] [facility] BMI 2022-03-07 12:35:00 32.42 kg/m2 Universi ty of [place] [facility] Systolic blood 2022-03-07 04:30:00 136 mm[Hg] Univer sity of pressure [place] [facility] Diastolic blood 2022-03-07 04:30:00 87 mm[Hg] Unive rsity of pressure [place] [facility] Heart rate 2022-03-07 04:30:00 76 /min Universi ty of [place] [facility] Body temperature 2022-03-07 04:30:00 36.39 María Univ ersity of [place] [facility] Respiratory rate 2022-03-07 04:30:00 18 /min Univ ersity of [place] [facility] Oxygen saturation in 2022-03-07 04:30:00 97 /min University of Arterial blood by [facility] [place] [facility] [place] Pulse oximetry Branch Body height 2022-03-07 00:30:00 160 cm Universi ty of [place] [facility] Body weight 2022-03-07 00:30:00 83.008 kg Universi ty of [place] [facility] BMI 2022-03-07 00:30:00 32.42 kg/m2 Universi ty of [place] [facility] Systolic blood 2021-09-24 06:20:00 146 mm[Hg] Univer sity of pressure [place] [facility] Diastolic blood 2021-09-24 06:20:00 84 mm[Hg] Unive rsity of pressure [place] [facility] Heart rate 2021-09-24 06:20:00 91 /min Universi ty of [place] [facility] Respiratory rate 2021-09-24 06:20:00 21 /min Univ ersity of [place] [facility] Oxygen saturation in 2021-09-24 06:20:00 93 /min University of Arterial blood by [place] [facility] [place] Pulse oximetry Branch Body temperature 2021-09-24 02:31:00 37.17 María Univ ersity of [place] [facility] Body height 2021-09-24 02:31:00 160 cm Universi ty [facility] [place] [facility] Body weight 2021-09-24 02:31:00 90.719 kg Universi ty of [place] [facility] BMI 2021-09-24 02:31:00 35.43 kg/m2 Universi ty [facility] [place] [facility] Systolic blood 2021-07-17 02:34:00 148 mm[Hg] Univer sity of pressure [place] [facility] Diastolic blood 2021-07-17 02:34:00 80 mm[Hg] Unive rsity of pressure [place] [facility] Heart rate 2021-07-17 02:34:00 97 /min Universi ty of [place] [facility] Respiratory rate 2021-07-17 02:34:00 17 /min Univ ersity of [place] [facility] Oxygen saturation in 2021-07-17 02:34:00 97 /min University of Arterial blood by [place] Medi [place] Pulse oximetry Branch Body temperature 2021-07-17 01:15:00 37.61 María Univ ersity of [place] [facility] Systolic blood 2021-01-04 17:28:00 128 mm[Hg] Univer sity of pressure [place] [facility] Diastolic blood 2021-01-04 17:28:00 84 mm[Hg] Unive rsity of pressure [place] [facility] Heart rate 2021-01-04 17:28:00 83 /min Universi ty [facility] [place] [facility] Body temperature 2021-01-04 17:28:00 36.56 María Univ ersity of [place] [facility] Respiratory rate 2021-01-04 17:28:00 20 /min Univ ersity of [place] [facility] Oxygen saturation in 2021-01-04 17:28:00 95 /min University of Arterial blood by [place] [facility] [place] Pulse oximetry Branch Body weight 2021-01-04 09:08:00 90.992 kg Universi ty [facility] [place] [facility] BMI 2021-01-04 09:08:00 35.53 kg/m2 Universi ty [facility] [place] [facility] Body height 2021-01-02 21:55:00 160 cm Universi ty [facility] [place] [facility] Systolic blood 2020-06-13 03:00:00 111 mm[Hg] Univer sity of pressure [place] [facility] Diastolic blood 2020-06-13 03:00:00 72 mm[Hg] Unive rsity of pressure [place] [facility] Heart rate 2020-06-13 03:00:00 70 /min Universi ty of [place] [facility] Respiratory rate 2020-06-13 03:00:00 19 /min Univ ersity of [place] [facility] Oxygen saturation in 2020-06-13 03:00:00 96 /min University of Arterial blood by [facility] Pulse oximetry Branch Body temperature 2020-06-13 01:01:00 36.78 María Univ ersity of [place] [facility] Body height 2020-06-13 01:01:00 162.6 cm Universi ty [facility] [place] [facility] Body weight 2020-06-13 01:01:00 86.183 kg Universi ty [facility] [place] [facility] BMI 2020-06-13 01:01:00 32.61 kg/m2 [facility]i ty [facility] [place] [facility] Systolic blood 2020-06-13 03:00:00 111 mm[Hg] Univer sity of pressure [place] [facility] Diastolic blood 2020-06-13 03:00:00 72 mm[Hg] Unive rsity of pressure [place] [facility] Heart rate 2020-06-13 03:00:00 70 /min Universi ty [facility] [place] [facility] Respiratory rate 2020-06-13 03:00:00 19 /min Univ ersity of [place] [facility] Oxygen saturation in 2020-06-13 03:00:00 96 /min University of Arterial blood by [facility] Pulse oximetry Branch Body temperature 2020-06-13 01:01:00 36.78 María [facility] Body height 2020-06-13 01:01:00 162.6 cm [facility] Body weight 2020-06-13 01:01:00 86.183 kg [facility] BMI 2020-06-13 01:01:00 32.61 kg/m2 [facility] Procedures Procedure Date / Time Performing Clinician Source Performed BASIC METABOLIC PANEL (NA, 2022-03-08 10:04:00 Rick Jasmine [facility] K, CL, CO2, GLUCOSE, BUN, [facility] CREATININE, [place]) VANCOMYCIN TROUGH 2022-03-08 10:04:00 Kenroy [facility] CBC WITH DIFF 2022-03-08 10:04:00 Kenroy [facility] BASIC METABOLIC PANEL (NA, 2022-03-08 10:04:00 [facility] CL, CO2, GLUCOSE, BUN, Medica [facility] CREATININE, [place]) VANCOMYCIN TROUGH 2022-03-08 10:04:00 Kenroy [facility] CBC WITH DIFF 2022-03-08 10:04:00 Kernoy [facility] ASPIRATE OR ABSCESS 2022-03-07 23:03:00 Kevin Doran [facility] CULTURE(AEROBIC/ANAEROBIC) [facility] FUNGUS (ROUTINE) CULTURE 2022-03-07 23:03:00 [facility] ASPIRATE OR ABSCESS 2022-03-07 23:03:00 [facility] CULTURE(AEROBIC/ANAEROBIC) [facility] FUNGUS (ROUTINE) CULTURE 2022-03-07 23:03:00 Kevin Doran [facility] ORAL CAVITY DEBRIDEMENT 2022-03-07 22:23:00 Kevin Doran [facility] TOOTH EXTRACTION 2022-03-07 22:23:00 Espinoza [facility] MANDIBULAR LESION 2022-03-07 22:23:00 Espinoza [facility] ENUCLEATION & CURETTAGE [facility] ORAL CAVITY DEBRIDEMENT 2022-03-07 22:23:00 Espinoza [facility] TOOTH EXTRACTION 2022-03-07 22:23:00 Espinoza [facility] MANDIBULAR LESION 2022-03-07 22:23:00 Espinoza [facility] ENUCLEATION & CURETTAGE [facility] PROTHROMBIN TIME / INR 2022-03-07 11:32:00 Rick Jasmine [facility] ACTIVATED PARTIAL THRMPLAS 2022-03-07 11:32:00 Rick Jasmine [facility] COVID-19 (ID NOW RAPID 2022-03-07 11:32:00 Rick Jasmine [facility] TESTING) Medical Branch LAB ONLY COVID 2022-03-07 11:32:00 Rick Jasmine [facility] PROTHROMBIN TIME / INR 2022-03-07 11:32:00 Rick Jasmine [facility] ACTIVATED PARTIAL THRMPLAS 2022-03-07 11:32:00 Rick Jasmine [facility] COVID-19 (ID NOW RAPID 2022-03-07 11:32:00 Rick Jasmine [facility] TESTING) Medical Branch LAB ONLY COVID 2022-03-07 11:32:[address] [facility] Branch XR ORTHOPANTOGRAM TEETH 2022-03-07 10:07:50 Kenroy [facility] XR ORTHOPANTOGRAM TEETH 2022-03-07 10:07:[address] [facility] [address] MAXILLOFACIAL/MANDIBLE 2022-03-07 02:39:39 Jake Ortiz [facility] W CONTRAST Medical Branch COMP. METABOLIC PANEL 2022-03-07 01:45:00 Jake Ortiz [facility] ([id number]) Medical Branch CBC WITH DIFF 2022-03-07 01:45:00 Jake Ortiz [facility] NOTICE OF PRIVACY 2022-03-07 00:04:41 Doctor Unassigned, [facility] PRACTICES [place] [facility] CONSENT/REFUSAL FOR 2022-03-07 00:04:19 Doctor Unassigned, [facility] DIAGNOSIS AND TREATMENT [place] [facility] AGREEMENTS AUTHORIZATIONS 2022-03-06 05:01:00 Doctor Ronnie, [facility] AND IRREVOCABLE [place] [facility] ASSIGNMENTS (FORM 2001) CT CHEST PULMONARY 2021-09-24 05:25:18 Néstor Baum [facility] ANGIOGRAM Medical Branch XR CHEST 1 VW 2021-09-24 03:58:59 Néstor Baum [facility] ACUTE CARE ARTERIAL BLOOD 2021-09-24 03:38:00 Néstor Baum [facility] GAS Medical Branch LIPASE 2021-09-24 03:16:00 Néstor Baum [facility] TROPONIN I 2021-09-24 03:16:00 Néstor Baum [facility] COMP. METABOLIC PANEL 2021-09-24 03:16:00 Néstor Baum [facility] ([id number]) Medical Branch CBC WITH DIFF 2021-09-24 03:16:00 Néstor Baum [facility] N-TERMINAL PRO-BNP 2021-09-24 03:16:00 Néstor Baum [facility] COVID-19 (ID NOW RAPID 2021-09-24 03:16:00 Néstor Baum [facility] TESTING) Medical Branch XR HIPS 2 VW RIGHT 2021-07-17 02:18:25 Sabiha Phoenix [facility] Medical [place] XR PELVIS <3 VW 2021-07-17 02:18:25 Sabiha Phoenix [facility] CONSENT/REFUSAL FOR 2021-07-17 01:09:04 Doctor Ronnie, [facility] DIAGNOSIS AND TREATMENT [place] [facility] BASIC METABOLIC PANEL (NA, 2021-01-04 11:30:00 Alka Valle [facility] K, CL, CO2, GLUCOSE, BUN, Medica l Branch CREATININE, CA) CBC WITH DIFF 2021-01-04 11:30:00 Alka Valle [facility] ADC,CLC OR LCC ONLY - 2021-01-03 22:33:00 Alka Valle [facility] INFLUENZA A & B DIRECT Medical B ranch ANTIGEN HB ECG ROUTINE & RHYTHM 2021-01-03 17:59:30 Alka Valle [facility] CT CHEST PULMONARY 2021-01-03 17:37:21 Alka Valle [facility] ANGIOGRAM Medical Branch XR CHEST 1 VW COVID 2021-01-03 15:30:00 Alka Valle [facility] BASIC METABOLIC PANEL (NA, 2021-01-03 10:00:00 Alka Valle [facility] K, CL, CO2, GLUCOSE, BUN, Medica l Branch CREATININE, CA) CBC WITH DIFF 2021-01-03 10:00:00 Alka Valle [facility] US RETROPERITONEAL 2021-01-03 03:56:10 Alka Valle [facility] COMPLETE Medical Branch TROPONIN I 2021-01-02 23:38:00 Hugo [facility] PROCALCITONIN 2021-01-02 23:38:00 Hugo [facility] RESPIRATORY PANEL BY PCR 2021-01-02 23:38:00 Imer Madden [facility] COVID-19 (MOLECULAR 2021-01-02 23:38:00 Alka Valle [facility] TESTING Medical Branch NUCLEIC ACID AMPLIFICATION) HB ECG ROUTINE & RHYTHM 2021-01-02 19:57:37 Amarjit Hernandez [facility] [place] URINALYSIS 2021-01-02 19:39:00 Amarjit Hernandez [facility] XR CHEST 1 VW 2021-01-02 19:27:40 Singer Amarjit [facility] COVID-19 (ID NOW RAPID 2021-01-02 19:25:00 Amarjit Hernandez [facility] TESTING) Medical Branch TROPONIN I 2021-01-02 19:23:00 Amarjit Hernandez [facility] COMP. METABOLIC PANEL 2021-01-02 19:23:00 Amarjit Hernandez [facility] ([id number]) Medical Branch CBC WITH DIFF 2021-01-02 19:23:[address] [facility] D-DIMER 2021-01-02 19:23:[address] [facility] [address] [facility] N-TERMINAL PRO-BNP 2021-01-02 19:23:00 [facility] NOTICE OF PRIVACY 2021-01-02 18:54:59 Doctor Ronnie, [facility] PRACTICES [place] [facility] [place] CONSENT/REFUSAL FOR 2021-01-02 18:43:56 Doctor Ronnie [facility] DIAGNOSIS AND TREATMENT [place] [facility] XR CHEST 1 VW COVID 2020-06-13 02:00:52 Néstor Baum [facility] COVID-19 (ID NOW RAPID 2020-06-13 01:26:00 Néstor Baum [facility] TESTING) Medical Branch LIPASE 2020-06-13 01:26:00 Néstor Baum [facility] TROPONIN I 2020-06-13 01:26:00 Néstor Baum [facility] COMP. METABOLIC PANEL 2020-06-13 01:26:00 Néstor Baum [facility] ([id number]) Medical Branch CBC WITH DIFF 2020-06-13 01:26:00 Néstor Baum [facility] PROTHROMBIN TIME / INR 2020-06-13 01:26:00 Néstor Baum [facility] ACTIVATED PARTIAL THRMPLAS 2020-06-13 01:26:00 Néstor Baum [facility] EKG-12 LEAD 2020-06-13 01:14:35 Néstor Baum [facility] URINALYSIS 2020-06-13 01:08:00 Néstor Baum [facility] ASSIGNMENT OF BENEFITS 2020-06-13 00:50:47 Doctor Ronnie [facility] Name Medical Branch NOTICE OF PRIVACY 2020-06-13 00:47:26 Doctor Ronnie, [facility] PRACTICES [place] [facility] CONSENT/REFUSAL FOR 2020-06-13 00:47:06 Doctor Ronnie [facility] DIAGNOSIS AND TREATMENT [place] [facility] Encounters Start End Encounter Admission Attending Care Care Encounter Source Date/Time Date/Time Type Type Clinicians Facility Department ID 2021-09-24 Emergency [facility] [id number] Univers 17:33:17 ity of [facility] 2021-09-21 Emergency [facility] [id number] Univers 07:48:00 ity of [facility] 2022-03-11 2022-03-11 Transition MANUELA Bojorquez [id number] Univers 00:00:00 00:00:00 of Care January ROGERS 350[place]1.13.10 [place] [id number] [facility] 403 Branch 2022-03-07 2022-03-08 [facility] [id number] Univers 01:40:00 14:51:00 HISHAM ity [facility] 2022-03-07 2022-03-08 Hospital Espinoza BELLE [id number] Univers 01:40:00 14:51:00 Encounter Kevin DOVE 350.1.13.10 ity of [facility] 4.2.7.2.686 Adolfo as [id number] [facility] 093 Branch 2022-03-07 2022-03-07 Surgery BELLE Doran 1.2.840.114 [id number] Univers 17:53:00 19:49:00 Kevin DOVE 350.1.13.10 it y of [facility] 4.2.7.2.686 Adolfo as [id number] [facility] 103 Branch 2022-03-06 2022-03-07 Emergency X ANGEL [facility] ERT [id number] Univers 19:32:00 00:45:00 JAKE ity [facility] 2022-03-06 2022-03-07 Emergency [facility] [id number] Univers 19:32:00 00:45:00 Jake S [place] 350.1.13.10 i ty [place] [id number] [facility] 084 Branch 2021-09-23 2021-09-24 [facility] [id number] Univers 21:31:00 01:45:00 NÉSTOR griffinstarr [facility] 2021-09-23 2021-09-24 [facility] [id number] Univers 21:31:00 01:45:00 Néstor SANTAMARIA 350.1.13.10 ity of [place] 4.2.7.2.686 [facility] [id number] [address] 2021-07-25 2021-07-25 Outpatient R GASTON, [facility] [id number] Univers 14:15:00 14:15:00 JANIE [facility] 2021-07-16 2021-07-16 [facility] [id number] Univers 20:25:00 22:23:00 Sabiha Santamaria 350.1.13.10 i ty of [place] 4.2.7.2.686 [facility] [id number] [address] 2021-01-05 2021-01-05 Transition Manuela Farley 1.2.840.114 [id number] Univers 00:00:00 00:00:00 of Care Bert [place] 350.1.13.10 ity of [place] 4.2.7.2.686 [facility] [id number] [facility] 403 Branch 2021-01-02 2021-01-04 Emergency Amarjit Hernandez [facility] 1.2.840. 114 [id number] Univers 12:58:00 15:10:00 Alka Valle 350.1.13.10 ity of Amarjit Hernandez 4.2.7.2.686 [facility] [id number] [address] 2021-01-02 2021-01-04 Outpatient X [facility] [id number] Univers 12:58:00 15:10:00 AMARJIT thomas [facility] 2020-06-12 2020-06-12 Emergency [facility] [id number] Univers 20:04:51 22:37:00 Néstro Santamaria 350.1.13.10 ity of [place] 4.2.7.2.686 [facility] [place] [phone] [facility] 084 Branch 2020-06-12 2020-06-12 Emergency SCOTTY Baum [id number] 20:04:51 22:37:00 Néstor Santamaria 350.1.13.10 [place] 4.2.7.2.686 [place] [id number] 2020-06-12 2020-06-12 Orders Doctor LEVIN 1.2.840.114 [id number] Univers 00:00:00 00:00:00 Only Unassigned, DERRELL 350.1.13.10 ity of [place] [facility] 4.2.7.2.686 [facility] [id number] [facility] 009 [place] 2020-06-12 2020-06-12 Orders Doctor LEVIN 1.2.840.114 [id number] 00:00:00 00:00:00 Only Unassigned, DERRELL 350.1.13.10 [place] [facility] 4.2.7.2.686 [id number] 009 Results Test Description Test Time Test Comments Results Result Comments Source Vancomycin Trough Level - Draw immediately prior to th e NEXT 2022-03-08 11:59:40 dose, but, no more than 60 minutes before the NEXT dose. Test Item Value Reference Range Interpretation Comme nts VANCO TROUGH (test code = 2559158533) 18.8 ug/mL 10.0-20.0 SHAI (test code = SHAI) Toxic Range: ?>20 ug/mL 15-20 ug/mL is recommended for severe infection or when Vancomycin HIRAM is greater than or equal to 2. Lab Interpretation (test code = Normal 10080-8) [facility] - Draw immediately prior to the NEXT dose, but, no more than 60 minutes before the NEXT dose. 2022-03-08 11:59:40 Test Item Value Reference Range Interpretation Comments VANCO TROUGH (test code 18.8 ug/mL 10.0-20.0 = 7108212606) SHAI (test code = SHAI) Toxic Range: ?>20 ug/mL 15-20 ug/mL is recommended for severe infection or when Vancomycin HIRAM is greater than or equal to 2. Lab Interpretation (test Normal code = 45758-2) [facility] Metabolic Panel (NA, K, CL, CO2, Glucose, BUN, Creatinine, CA)2022-03-08 10:34:44 Test Item Value Reference Range Interpretation Comments NA (test code = 137 mmol/L 135-145 4821370719) K (test code = 4.6 mmol/L 3.5-5.0 9005951765) CL (test code = 108 mmol/L 98-108 4790971933) CO2 TOTAL (test code = 27 mmol/L 23-31 8593002371) AGAP (test code = 2-16 3783614572) BUN (test code = 11 mg/dL 7-23 6111452259) GLUCOSE (test code = 138 mg/dL 70-110 H 6110411894) CREATININE (test code = 0.76 mg/dL 0.50-1.04 9641289937) CALCIUM (test code = 8.5 mg/dL 8.6-10.6 L 5035894627) eGFR (test code = mL/min/1.73m2 4236016943) SHAI (test code = SHAI) Association of Glomerular Filtration Rate (GFR) and Staging of Kidney Disease* + --+ --+ ------+| GFR (mL/min/1.73 m2) ?| With Kidney Damage ?| ?Without Kidney Damage+ --------+ --------+ +| ?>90 ?| ?Stage one ?| ? Normal ?+ ---+ ---+ -------+| ?60-89 ?| ?Stage two ?| ? Decreased GFR ? + --+ --+ ------+| ?30-59 ?| ?Stage three ?| ? Stage three ? + --+ --+ ------+| ?15-29 ?| ?Stage four ? | ? Stage four ?+ ---+ ---+ -------+| ?<15 (or dialysis) ? ?| ?Stage five ? | ? Stage five ?+ ---+ ---+ -------+ *Each stage assumes the associated GFR level has been in effect for at least three months. ?Stages 1 to 5, with or without kidney disease, indicate chronic kidney disease. Notes: Determination of stages one and two (with eGFR >59mL/min/1.73 m2) requires estimation of kidney damage for at least three months as defined by structural or functional abnormalities of the kidney, manifested by either:Pathological abnormalities or Markers of kidney damage (including abnormalities in the composition of the blood or urine or abnormalities in imaging tests). Lab Interpretation Abnormal (test code = 73982-6) [facility] Metabolic Panel (NA, K, CL, CO2, Glucose, BUN, Creatinine, CA)2022-03-08 10:34:44 Test Item Value Reference Range Interpretation Comments NA (test code = 137 mmol/L 135-145 2166413567) K (test code = 4.6 mmol/L 3.5-5.0 2494403805) CL (test code = 108 mmol/L 98-108 3513677696) CO2 TOTAL (test code = 27 mmol/L 23-31 1891440070) AGAP (test code = 2-16 9270656070) BUN (test code = 11 mg/dL 7-23 3324057700) GLUCOSE (test code = 138 mg/dL 70-110 H 4690982216) CREATININE (test code = 0.76 mg/dL 0.50-1.04 1952925704) CALCIUM (test code = 8.5 mg/dL 8.6-10.6 L 4632551302) eGFR (test code = mL/min/1.73m2 9284370042) SHAI (test code = SHAI) Association of Glomerular Filtration Rate (GFR) and Staging of Kidney Disease* + --+ --+ ------+| GFR (mL/min/1.73 m2) ?| With Kidney Damage ?| ?Without Kidney Damage+ --------+ --------+ +| ?>90 ?| ?Stage one ?| ? Normal ?+ ---+ ---+ -------+| ?60-89 ?| ?Stage two ?| ? Decreased GFR ? + --+ --+ ------+| ?30-59 ?| ?Stage three ?| ? Stage three ? + --+ --+ ------+| ?15-29 ?| ?Stage four ? | ? Stage four ?+ ---+ ---+ -------+| ?<15 (or dialysis) ? ?| ?Stage five ? | ? Stage five ?+ ---+ ---+ -------+ *Each stage assumes the associated GFR level has been in effect for at least three months. ?Stages 1 to 5, with or without kidney disease, indicate chronic kidney disease. Notes: Determination of stages one and two (with eGFR >59mL/min/1.73 m2) requires estimation of kidney damage for at least three months as defined by structural or functional abnormalities of the kidney, manifested by either:Pathological abnormalities or Markers of kidney damage (including abnormalities in the composition of the blood or urine or abnormalities in imaging tests). Lab Interpretation Abnormal (test code = 82963-8) [facility] with [id number] 10:19:03 Test Item Value Reference Range Interpretation Comments WBC (test code = See_Comment [Automated 3190-2) message] The sy stem which generated this result transmitted reference range : 4.30 - 11.10 10*3/?L. The reference range was not used to interpret this result as normal/abnormal . RBC (test code = See_Comment H [Automated 069-8) message] The sy stem which generated this result transmitted reference range : 3.93 - 5.25 10*6/?L. The reference range was not used to interpret this result as normal/abnormal . HGB (test code = 15.4 g/dL 11.6-15.0 H 718-7) HCT (test code = 47.6 % 35.7-45.2 H 4544-3) MCV (test code = 89.3 fL 80.6-95.5 787-2) MCH (test code = 28.9 pg 25.9-32.8 785-6) MCHC (test code = 32.4 g/dL 31.6-35.1 786-4) RDW-SD (test code = 48.0 fL 39.0-49.9 48176-7) RDW-CV (test code = 14.7 % 12.0-15.5 788-0) PLT (test code = See_Comment [Automated 777-3) message] The sy stem which generated this result transmitted reference range : 166 - 358 10*3/ ?L. The reference r niyah was not used to interpret this result as normal/abnormal . MPV (test code = 10.0 fL 9.5-12.9 14301-6) NRBC/100 WBC (test See_Comment [Automat ed code = 9526501183) message] The system which generated this result transmitted reference range : 0.0 - 10.0 /100 WBCs. The refer ence range was not u sed to interpret th is result as normal/abnormal . NRBC x10^3 (test code <0.01 See_Comment [Auto mated = 0279114646) message] The s ystem which generated this result transmitted reference range : 10*3/?L. The reference range was not used to interpret this result as normal/abnormal . GRAN MAT (NEUT) % 85.1 % (test code = 770-8) IMM GRAN % (test code 0.40 % = 8996269009) LYMPH % (test code = 10.9 % 736-9) MONO % (test code = 3.4 % 5905-5) EOS % (test code = 0.0 % 713-8) BASO % (test code = 0.2 % 706-2) GRAN MAT x10^3(ANC) 7.86 10*3/uL 1.88-7.09 H (test code = 1621007742) IMM GRAN x10^3 (test 0.04 10*3/uL 0.00-0.06 code = 6555628401) LYMPH x10^3 (test code 1.01 10*3/uL 1.32-3.29 L = 731-0) MONO x10^3 (test code 0.31 10*3/uL 0.33-0.92 L = 742-7) EOS x10^3 (test code = <0.03 0.03-0.39 L 711-2) BASO x10^3 (test code <0.03 0.01-0.07 = 704-7) Lab Interpretation Abnormal (test code = 66819-9) [facility] with [id number] 10:19:03 Test Item Value Reference Range Interpretation Comments WBC (test code = See_Comment [Automated 6690-2) message] The sy stem which generated this result transmitted reference range : 4.30 - 11.10 10*3/?L. The reference range was not used to interpret this result as normal/abnormal . RBC (test code = See_Comment H [Automated 789-8) message] The sy stem which generated this result transmitted reference range : 3.93 - 5.25 10*6/?L. The reference range was not used to interpret this result as normal/abnormal . HGB (test code = 15.4 g/dL 11.6-15.0 H 718-7) HCT (test code = 47.6 % 35.7-45.2 H 4544-3) MCV (test code = 89.3 fL 80.6-95.5 787-2) MCH (test code = 28.9 pg 25.9-32.8 785-6) MCHC (test code = 32.4 g/dL 31.6-35.1 786-4) RDW-SD (test code = 48.0 fL 39.0-49.9 00009-3) RDW-CV (test code = 14.7 % 12.0-15.5 788-0) PLT (test code = See_Comment [Automated 777-3) message] The sy stem which generated this result transmitted reference range : 166 - 358 10*3/ ?L. The reference r niyah was not used to interpret this result as normal/abnormal . MPV (test code = 10.0 fL 9.5-12.9 31944-9) NRBC/100 WBC (test See_Comment [Automat ed code = 8010982132) message] The system which generated this result transmitted reference range : 0.0 - 10.0 /100 WBCs. The refer ence range was not u sed to interpret th is result as normal/abnormal . NRBC x10^3 (test code <0.01 See_Comment [Auto mated = 0589676581) message] The s ystem which generated this result transmitted reference range : 10*3/?L. The reference range was not used to interpret this result as normal/abnormal . GRAN MAT (NEUT) % 85.1 % (test code = 770-8) IMM GRAN % (test code 0.40 % = 0608267330) LYMPH % (test code = 10.9 % 736-9) MONO % (test code = 3.4 % 5905-5) EOS % (test code = 0.0 % 713-8) BASO % (test code = 0.2 % 706-2) GRAN MAT x10^3(ANC) 7.86 10*3/uL 1.88-7.09 H (test code = 3555473568) IMM GRAN x10^3 (test 0.04 10*3/uL 0.00-0.06 code = 6749340137) LYMPH x10^3 (test code 1.01 10*3/uL 1.32-3.29 L = 731-0) MONO x10^3 (test code 0.31 10*3/uL 0.33-0.92 L = 742-7) EOS x10^3 (test code = <0.03 0.03-0.39 L 711-2) BASO x10^3 (test code <0.03 0.01-0.07 = 704-7) Lab Interpretation Abnormal (test code = 93738-8) [facility]21 Test Item Value Reference Range Interpretation Comments APTT Patient (test code = See_Comment [ Automated message] 3173-2) The system [employer] generated this result transmitted ref erence range: 26 - 36 Seconds. The re ference range was not u sed to interpret this result as normal/abnor mal. Lab Interpretation (test Normal code = 00724-5) [facility] 12:00:21 Test Item Value Reference Range Interpretation Comments APTT Patient (test code = See_Comment [ Automated message] 3173-2) The system [employer] generated this result transmitted ref erence range: 26 - 36 Seconds. The re ference range was not u sed to interpret this result as normal/abnor mal. Lab Interpretation (test Normal code = 59880-0) [facility] / [id number] 12:00:20 Test Item Value Reference Range Interpretation Comments PROTIME PATIENT (test See_Comment [Auto mated message] code = 5964-2) The system [employer] generated this result transmitted ref erence range: 10.1 - 1 2.6 Seconds. The re ference range was not u sed to interpret this result as normal/abnor mal. INR (test code = 6301-6) Nor mal INR <1.1; Warfarin Therap eutic range 2.0 to 3. 0 or 2.5 to 3.5, dep ending upon the indica tions. Lab Interpretation (test Normal code = 05765-9) [facility] / [id number] 12:00:20 Test Item Value Reference Range Interpretation Comments PROTIME PATIENT (test See_Comment [Auto mated message] code = 5964-2) The system [employer] generated this result transmitted ref erence range: 10.1 - 1 2.6 Seconds. The re ference range was not u sed to interpret this result as normal/abnor mal. INR (test code = 6301-6) Nor mal INR <1.1; Warfarin Therap eutic range 2.0 to 3. 0 or 2.5 to 3.5, dep ending upon the indica tions. Lab Interpretation (test Normal code = 16871-5) [facility] (71785)2022-03-07 02:28:41 Test Item Value Reference Range Interpretation Comments NA (test code = 135 mmol/L 135-145 1446763180) K (test code = 4.5 mmol/L 3.5-5.0 2732978512) CL (test code = 103 mmol/L 98-108 5139450933) CO2 TOTAL (test code = 25 mmol/L 23-31 2182435082) AGAP (test code = 2-16 2942339322) BUN (test code = 15 mg/dL 7-23 0384015286) GLUCOSE (test code = 96 mg/dL 70-110 2011667777) CREATININE (test code = 0.84 mg/dL 0.50-1.04 4730515698) TOTAL BILI (test code = 0.4 mg/dL 0.1-1.5 7069102321) CALCIUM (test code = 8.5 mg/dL 8.6-10.6 L 4995818312) T PROTEIN (test code = 6.5 g/dL 6.3-8.2 3836437007) ALBUMIN (test code = 3.8 g/dL 3.5-5.0 3281525175) ALK PHOS (test code = 80 U/L 34-122 3933177284) ALTv (test code = 8 U/L 35 1742-6) AST(SGOT) (test code = 18 U/L 13-40 0321191006) eGFR (test code = mL/min/1.73m2 1450481310) SHAI (test code = SHAI) Association of Glomerular Filtration Rate (GFR) and Staging of Kidney Disease* + --+ --+ ------+| GFR (mL/min/1.73 m2) ?| With Kidney Damage ?| ?Without Kidney Damage+ --------+ --------+ +| ?>90 ?| ?Stage one ?| ? Normal ?+ ---+ ---+ -------+| ?60-89 ?| ?Stage two ?| ? Decreased GFR ? + --+ --+ ------+| ?30-59 ?| ?Stage three ?| ? Stage three ? + --+ --+ ------+| ?15-29 ?| ?Stage four ? | ? Stage four ?+ ---+ ---+ -------+| ?<15 (or dialysis) ? ?| ?Stage five ? | ? Stage five ?+ ---+ ---+ -------+ *Each stage assumes the associated GFR level has been in effect for at least three months. ?Stages 1 to 5, with or without kidney disease, indicate chronic kidney disease. Notes: Determination of stages one and two (with eGFR >59mL/min/1.73 m2) requires estimation of kidney damage for at least three months as defined by structural or functional abnormalities of the kidney, manifested by either:Pathological abnormalities or Markers of kidney damage (including abnormalities in the composition of the blood or urine or abnormalities in imaging tests). Lab Interpretation Abnormal (test code = 39230-8) [facility] WITH [id number] 01:56:34 Test Item Value Reference Range Interpretation Comments WBC (test code = See_Comment [Automated 6659-2) message] The sy stem which generated this result transmitted reference range : 4.30 - 11.10 10*3/?L. The reference range was not used to interpret this result as normal/abnormal . RBC (test code = See_Comment [Automated 622-8) message] The sy stem which generated this result transmitted reference range : 3.93 - 5.25 10*6/?L. The reference range was not used to interpret this result as normal/abnormal . HGB (test code = 15.4 g/dL 11.6-15.0 H 718-7) HCT (test code = 46.5 % 35.7-45.2 H 4544-3) MCV (test code = 90.5 fL 80.6-95.5 787-2) MCH (test code = 30.0 pg 25.9-32.8 785-6) MCHC (test code = 33.1 g/dL 31.6-35.1 786-4) RDW-SD (test code = 50.0 fL 39.0-49.9 H 10653-4) RDW-CV (test code = 15.0 % 12.0-15.5 788-0) PLT (test code = See_Comment [Automated 777-3) message] The sy stem which generated this result transmitted reference range : 166 - 358 10*3/ ?L. The reference r niyah was not used to interpret this result as normal/abnormal . MPV (test code = 9.8 fL 9.5-12.9 48317-6) NRBC/100 WBC (test See_Comment [Automat ed code = 2373120427) message] The system which generated this result transmitted reference range : 0.0 - 10.0 /100 WBCs. The refer ence range was not u sed to interpret th is result as normal/abnormal . NRBC x10^3 (test code <0.01 See_Comment [Auto mated = 5141806197) message] The s ystem which generated this result transmitted reference range : 10*3/?L. The reference range was not used to interpret this result as normal/abnormal . GRAN MAT (NEUT) % 54.5 % (test code = 770-8) IMM GRAN % (test code 0.40 % = 0799444642) LYMPH % (test code = 29.9 % 736-9) MONO % (test code = 10.8 % 5905-5) EOS % (test code = 3.7 % 713-8) BASO % (test code = 0.7 % 706-2) GRAN MAT x10^3(ANC) 5.37 10*3/uL 1.88-7.09 (test code = 9581088245) IMM GRAN x10^3 (test 0.04 10*3/uL 0.00-0.06 code = 8976858758) LYMPH x10^3 (test code 2.95 10*3/uL 1.32-3.29 = 731-0) MONO x10^3 (test code 1.06 10*3/uL 0.33-0.92 H = 742-7) EOS x10^3 (test code = 0.36 10*3/uL 0.03-0.39 711-2) BASO x10^3 (test code 0.07 10*3/uL 0.01-0.07 = 704-7) Lab Interpretation Abnormal (test code = 25904-3) [facility] [id number] 03:53:58 Test Item Value Reference Interpretation Comments Range TROPONIN I (test <0.012 See_Comment [Automated code = 7119212244) message] The system which generated this result transmitted reference range : <=0.034 ng/mL. The reference range was not used to interpret this result as normal/abnormal . SHAI (test code = Reference (Normal) SHAI) Range (defined by the 99th percentile reference limit): <= 0.034 ng/mL Note: Cardiac troponin begins to rise 3-4 hours after the onset of ischemia. Repeat in 4-6 hours if the sample was drawn within 3-4 hours of the onset of the symptom and found normal. Diagnosis of myocardial injury is made with acute changes in cTn concentrations with at least one serial sample above the 99th percentile upper reference limit (URL), taken together with the patient's clinical presentation. Biotin has been reported to cause a negative bias, interpret results relative to patient's use of biotin. Lab Interpretation Normal (test code = 37942-9) [facility] [id number] 03:50:57 Test Item Value Reference Range Interpretation Comments NT-proBNP (test code 712 pg/mL See_Comment H [Autom ated = 2508651150) message] The system which generated this result transmitted reference range : <=125. The reference range was not used to interpret this result as normal/abnormal . SHAI (test code = SHAI) Biotin has been reported to cause a negative bias, interpret results relative to patient's use of biotin. Lab Interpretation Abnormal (test code = 76189-5) [facility]. METABOLIC PANEL ([id number])2021-09-24 03:42:34 Test Item Value Reference Range Interpretation Comments NA (test code = 133 mmol/L 135-145 L 9386098350) K (test code = 5.4 mmol/L 3.5-5.0 H 3000847392) CL (test code = 101 mmol/L 98-108 7322834698) CO2 TOTAL (test code = 27 mmol/L 23-31 0469503524) AGAP (test code = 2-16 4521894012) BUN (test code = 21 mg/dL 7-23 4557225695) GLUCOSE (test code = 129 mg/dL 70-110 H 7460410749) CREATININE (test code = 1.09 mg/dL 0.50-1.04 H 4606905524) TOTAL BILI (test code = 0.3 mg/dL 0.1-1.0 5829420294) CALCIUM (test code = 9.5 mg/dL 8.6-10.6 6931832325) T PROTEIN (test code = 6.8 g/dL 6.3-8.2 9833144562) ALBUMIN (test code = 4.0 g/dL 3.5-5.0 6842064187) ALK PHOS (test code = 64 U/L 34-122 4573118530) ALTv (test code = 14 U/L 5-35 1742-6) AST(SGOT) (test code = 17 U/L 13-40 7255860815) eGFR (test code = mL/min/1.73m2 0806604952) SHAI (test code = SHAI) Association of Glomerular Filtration Rate (GFR) and Staging of Kidney Disease* + --+ --+ ------+| GFR (mL/min/1.73 m2) ?| With Kidney Damage ?| ?Without Kidney Damage+ --------+ --------+ +| ?>90 ?| ?Stage one ?| ? Normal ?+ ---+ ---+ -------+| ?60-89 ?| ?Stage two ?| ? Decreased GFR ? + --+ --+ ------+| ?30-59 ?| ?Stage three ?| ? Stage three ? + --+ --+ ------+| ?15-29 ?| ?Stage four ? | ? Stage four ?+ ---+ ---+ -------+| ?<15 (or dialysis) ? ?| ?Stage five ? | ? Stage five ?+ ---+ ---+ -------+ *Each stage assumes the associated GFR level has been in effect for at least three months. ?Stages 1 to 5, with or without kidney disease, indicate chronic kidney disease. Notes: Determination of stages one and two (with eGFR >59mL/min/1.73 m2) requires estimation of kidney damage for at least three months as defined by structural or functional abnormalities of the kidney, manifested by either:Pathological abnormalities or Markers of kidney damage (including abnormalities in the composition of the blood or urine or abnormalities in imaging tests). Lab Interpretation Abnormal (test code = 70125-9) [facility] [id number] 03:42:19 Test Item Value Reference Range Interpretation Comments LIPASE (test code = 6213856944) 134 U/L 0-220 Lab Interpretation (test code = Normal 38682-5) [facility].2021-09-24 03:41:59 Test Item Value Reference Range Interpretation Comments PH (test code = 2) 7.35-7.45 H PCO2 (test code = See_Comment [Automate d message] [id number]) The system [employer] generated this result transmitted ref erence range: 35 - 45 mmHg. The reference r niyah was not used to interpret this result as normal/abnor mal. PO2 (test code = See_Comment [Automated message] 9332795930) The system [employer] generated this result transmitted ref erence range: 80 - 100 mmHg. The reference r niyah was not used to interpret this result as normal/abnor mal. HCO3 (test code = See_Comment [Automate d message] 8312686949) The system [employer] generated this result transmitted ref erence range: 22 - 26 mEq/L. The reference r niyah was not used to interpret this result as normal/abnor mal. BE (test code = See_Comment [Automated message] 9800672453) The system whic h generated this result transmitted ref erence range: -3.0 - 3 .0 mEq/L. The refe rence range was not u sed to interpret this result as normal/abnor mal. Lab Interpretation (test Abnormal code = 46618-2) [facility] WITH [id number] 03:22:33 Test Item Value Reference Range Interpretation Comments WBC (test code = See_Comment H [Automated 6690-2) message] The system which generated this result transmit shar reference range : 4.30 - 11.10 10*3/?L. The reference range was not used to interpret this result as normal/abnormal . RBC (test code = See_Comment [Automated 789-8) message] The system which generated this result transmit shar reference range : 3.93 - 5.25 10*6/?L. The reference range was not used to interpret this result as normal/abnormal . HGB (test code = 10.7 g/dL 11.6-15.0 L 718-7) HCT (test code = 34.1 % 35.7-45.2 L 4544-3) MCV (test code = 78.0 fL 80.6-95.5 L 787-2) MCH (test code = 24.5 pg 25.9-32.8 L 785-6) MCHC (test code = 31.4 g/dL 31.6-35.1 L 786-4) RDW-SD (test code = 49.5 fL 39.0-49.9 95860-3) RDW-CV (test code = 18.1 % 12.0-15.5 H 788-0) PLT (test code = See_Comment H [Automated 777-3) message] The system which generated this result transmit shar reference range : 166 - 358 10*3/ ?L. The reference range was not u sed to interpret th is result as normal/abnormal . MPV (test code = 9.7 fL 9.5-12.9 41810-8) NRBC/100 WBC (test See_Comment [Automat ed code = 6213232778) message] The system which generated this result transmit shar reference range : 0.0 - 10.0 /100 WBCs. The reference range was not used to interpret this result as normal/abnormal . NRBC x10^3 (test code <0.01 See_Comment [Auto mated = 9073267090) message] The system which generated this result transmit shar reference range : 10*3/?L. The reference range was not used to interpret this result as normal/abnormal . GRAN MAT (NEUT) % 87.5 % (test code = 770-8) IMM GRAN % (test code 1.50 % = 1709591246) LYMPH % (test code = 7.4 % 736-9) MONO % (test code = 3.4 % 5905-5) EOS % (test code = 0.0 % 713-8) BASO % (test code = 0.2 % 706-2) GRAN MAT x10^3(ANC) 14.51 10*3/uL 1.88-7.09 H (test code = 6138563447) IMM GRAN x10^3 (test 0.25 10*3/uL 0.00-0.06 H code = 0770113150) LYMPH x10^3 (test code 1.23 10*3/uL 1.32-3.29 L = 731-0) MONO x10^3 (test code 0.57 10*3/uL 0.33-0.92 = 742-7) EOS x10^3 (test code = <0.03 0.03-0.39 L 711-2) BASO x10^3 (test code 0.04 10*3/uL 0.01-0.07 = 704-7) Lab Interpretation Abnormal (test code = 24395-0) [facility] 2 VW [id number] 02:37:52No acute osseous abnormality of the right hip. RL: 1401 END REPORT. ORDERING PROVIDER: LUISA PHOENIX HISTORY: right hip pain TECHNIQUE: 2 viewsof the right hip. COMPARISON: None. FINDINGS:No fracture or dislocation. ?Mild osteoarthrosis with subchondral sclerosisand osteophytosis and moderate joint space narrowing. [facility], Radiant Results Inft U ser - 07/16/2021 9:38 PM CDT ORDERING PROVIDER: SABIHA PHOENIXHISTORY: right hip pain TECHNIQUE: 2 views of the right hip.COMPARISON: None.FINDINGS:No fracture or dislocation. Mild osteoarthrosis with subchondral sclerosisand osteophytosis and moderate joint space narrowing.IMPRESSIONNo acute osseous abnormality of the right hip. RL: 1401ENDREPORT. [facility] PELVIS <3 [id number] 02:36:38No acute osseous abnormality of the pelvis . RL: 1401 END REPORT. ORDERING PROVIDER: LUISA PHOENIX HISTORY: Pain TECHNIQUE: 2 views of the pelvis. COMPARISON: None. FINDINGS:No fracture. [facility], Radiant Results Inft User - 07/16/2021 9:37 PM CDT ORDERING PROVIDER: SABIHA PHOENIXHISTORY: PainTECHNIQUE: 2 views of the pelvis.COMPARISON: None.FINDINGS:No fracture.IMPRESSIONNo acute osseous abnormality of the pelvis . RL: 1401END REPORT. [facility] CenterRESPIRATORY PANEL BY [id number] 20:03:00 Test Item Value Reference Range Interpretation Comments Adenovirus (test code = Negative Negative 78756-5) Coronavirus HKU1 (test Negative Negative code = 26868-3) Coronavirus NL63 (test Negative Negative code = 27573-2) Coronavirus 229E (test Negative Negative code = 27951-8) Coronavirus OC43 (test Negative Negative code = 52514-2) Human Metapneumovirus Negative Negative (test code = 14935-1) Human Positive Negative A Rhinovirus/Enterovirus (test code = 54460-1) Influenza A (test code = Negative Negative 12024-3) Influenza B (test code = Negative Negative 38525-4) Parainfluenza Virus 1 Negative Negative (test code = 98374-9) Parainfluenza Virus 2 Negative Negative (test code = 81127-0) Parainfluenza Virus 3 Negative Negative (test code = 71086-6) Parainfluenza Virus 4 Negative Negative (test code = 24435-8) Respiratory Syncytial Negative Negative Virus (test code = 17099-9) Bordetella parapertussis Negative Negative (test code = 82941-4) Bordetella pertussis Negative Negative (test code = 65274-6) Chlamydia pneumoniae Negative Negative (test code = 22833-9) Mycoplasma pneumoniae Negative Negative (test code = 36685-1) SHAI (test code = SHAI) Negative:A negative result does not rule-out infection. ?This assay does not test for all potential infectious agents. ? Positive:A positive test result does not necessarily indicate the presence of viable organism. ? Lab Interpretation (test Abnormal code = 40143-8) [facility] Basic Metabolic Panel (NA, K, CL, CO2, GLUCOSE, BUN, CREATININE, CA)2021-01-04 14:27:00 Test Item Value Reference Range Interpretation Comments NA (test code = 140 mmol/L 135-145 3983718823) K (test code = 4.2 mmol/L 3.5-5 9846691337) CL (test code = 105 mmol/L 98-108 3179113466) CO2 TOTAL (test code = 29 mmol/L 23-31 4996461269) AGAP (test code = 2-16 6059878496) BUN (test code = 18 mg/dL 7-23 7284598913) GLUCOSE (test code = 117 mg/dL 70-110 H 5823021464) CREATININE (test code = 0.93 mg/dL 0.5-1.04 6827161044) CALCIUM (test code = 9.3 mg/dL 8.6-10.6 1646959868) eGFR Calculation mL/min/1.73m2 (Non-) (test code = 3421252169) eGFR Calculation mL/min/1.73m2 () (test code = 6979687409) SHAI (test code = SHAI) Association of Glomerular Filtration Rate (GFR) and Staging of Kidney Disease* + --+ --+ ------+| GFR (mL/min/1.73 m2) ?| With Kidney Damage ?| ?Without Kidney Damage+ --------+ --------+ +| ?>90 ?| ?Stage one ?| ? Normal ?+ ---+ ---+ -------+| ?60-89 ?| ?Stage two ?| ? Decreased GFR ? + --+ --+ ------+| ?30-59 ?| ?Stage three ?| ? Stage three ? + --+ --+ ------+| ?15-29 ?| ?Stage four ? | ? Stage four ?+ ---+ ---+ -------+| ?<15 (or dialysis) ? ?| ?Stage five ? | ? Stage five ?+ ---+ ---+ -------+ *Each stage assumes the associated GFR level has been in effect for at least three months. ?Stages 1 to 5, with or without kidney disease, indicate chronic kidney disease. Notes: Determination of stages one and two (with eGFR >59mL/min/1.73 m2) requires estimation of kidney damage for at least three months as defined by structural or functional abnormalities of the kidney, manifested by either:Pathological abnormalities or Markers of kidney damage (including abnormalities in the composition of the blood or urine or abnormalities in imaging tests). Lab Interpretation Abnormal (test code = 60381-5) [facility] CBC with [id number] 13:07:00 Test Item Value Reference Range Interpretation Comments WBC (test code = See_Comment H [Automated 6690-2) message] The sy stem which generated this result transmitted reference range : 4.30 - 11.10 10*3/?L. The reference range was not used to interpret this result as normal/abnormal . RBC (test code = See_Comment L [Automated 789-8) message] The sy stem which generated this result transmitted reference range : 3.93 - 5.25 10*6/?L. The reference range was not used to interpret this result as normal/abnormal . HGB (test code = 11.2 g/dL 11.6-15 L 718-7) HCT (test code = 36.3 % 35.7-45.2 4544-3) MCV (test code = 93.8 fL 80.6-95.5 787-2) MCH (test code = 28.9 pg 25.9-32.8 785-6) MCHC (test code = 30.9 g/dL 31.6-35.1 L 786-4) RDW-SD (test code = 58.6 fL 39-49.9 H 22051-5) RDW-CV (test code = 17.2 % 12-15.5 H 788-0) PLT (test code = See_Comment [Automated 777-3) message] The sy stem which generated this result transmitted reference range : 166 - 358 10*3/ ?L. The reference r niyah was not used to interpret this result as normal/abnormal . MPV (test code = 10.2 fL 9.5-12.9 08591-7) NRBC/100 WBC (test See_Comment [Automat ed code = 8382951760) message] The system which generated this result transmitted reference range : 0.0 - 10.0 /100 WBCs. The refer ence range was not u sed to interpret th is result as normal/abnormal . NRBC x10^3 (test code <0.01 See_Comment [Auto mated = 6066833257) message] The s ystem which generated this result transmitted reference range : 10*3/?L. The reference range was not used to interpret this result as normal/abnormal . GRAN MAT (NEUT) % 67.9 % (test code = 770-8) IMM GRAN % (test code 1.00 % = 9683341766) LYMPH % (test code = 18.1 % 736-9) MONO % (test code = 12.5 % 5905-5) EOS % (test code = 0.1 % 713-8) BASO % (test code = 0.4 % 706-2) GRAN MAT x10^3(ANC) 7.74 10*3/uL 1.88-7.09 H (test code = 2059597225) IMM GRAN x10^3 (test 0.11 10*3/uL 0-0.06 H code = 0141328761) LYMPH x10^3 (test code 2.06 10*3/uL 1.32-3.29 = 731-0) MONO x10^3 (test code 1.42 10*3/uL 0.33-0.92 H = 742-7) EOS x10^3 (test code = <0.03 0.03-0.39 L 711-2) BASO x10^3 (test code 0.05 10*3/uL 0.01-0.07 = 704-7) Lab Interpretation Abnormal (test code = 60176-6) [facility] OR [facility] ONLY - INFLUENZA A & B DIRECT [id number] 00:10:00 Test Item Value Reference Range Interpretation Comments Influenza A (test code = 52040-3) Negative Negative Influenza B (test code = 99373-5) Negative Negative Lab Interpretation (test code = Normal 41781-1) [facility] COVID-19 [id number] 21:37:00 Test Item Value Reference Range Interpretation Comments SARS-CoV-2 NAAT (test Not Detected Not Detected code = 44186-7) SHAI (test code = SHAI) [employer] SARS-CoV-2 Assay is a nucleic acid amplification test intended for the qualitative detection of RNA from SARS-CoV-2 from nasopharyngeal (WEATHER[employer]ATION OPERATIONS MANAGER) specimens. ?It is used under Emergency Use Authorization (EUA) by FDA. A positive result is indicative of the presence of SARS-CoV-2 RNA. ?Clinical correlation with patient history and other diagnostic information is necessary to determine patient infection status. A negative (Not Detected) result does not preclude SARS-CoV-2 infection. ?Clinical correlation with patient history and other diagnostic information should be used in patient management decisions. Invalid: Unable to generate a valid test result on this specimen. ?Please submit a new specimen for repeat testing if clinically indicated. Lab Interpretation Normal (test code = 44672-5) [facility] [id number] 17:43:32HISTORY: Rule out P.E. TECHNIQUE: Contrast-enhanced 64-mutidetector CT scan of the chest wascompleted with intravenous injection of ?non ionic contrast medium.Subsequently numerous sagittal, coronal and MIP reformations weregenerated. FINDINGS: Visualized portions of the thyroid gland appear unremarkable.Trachea and central bronchial airways appear normal. No enlarged hilar ormediastinal lymph nodes detected. Minimal calcifications are seen in someof the right left perihilar lymph nodes. No acute pulmonary thromboembolism detected. No aortic aneurysm or aorticdissection. No pneumonia. No pneumothorax or pleural effusion or pericardial effusion. A single 4 mm noncalcified nodule noted in the right upper lung (10:43). Minimal fibrosis noted in the left lung base. Short sliding hiatal herniasuspected. Minimal coronary atherosclerosis seen in all 3 coronary arteries. Note madeof thoracolumbar scoliosis with mild degenerative spondylosis. Noaggressive bone lesions or any compression fracture deformity visualized inthe thoracic vertebral bodies.. CONCLUSIONS: No acute intrathoracic findings. Specifically, no evidence ofacute pulmonary thromboembolism. [facility], Radiant Results Inft User - 01/03/2021 11:44 AM CSTHISTORY: Rule out P.E.TECHNIQUE: Contrast-enhanced 64-mutidetector CT scan of the chest wascompleted with intravenous injection of non ionic contrast medium.Subsequently numerous sagittal, coronal and MIP reformations weregenerated.FINDINGS: Visualized portions of the thyroid gland appear unre markable.Trachea and central bronchial airways appear normal. No enlarged hilar ormediastinal lymph nodes detected. Minimal calcifications are seen in someof the right left perihilar lymph nodes.No acute pulmonary thromboembolism detected. No aortic aneurysm or aorticdissection.No pneumonia. No pneumothorax or pleural effusion or pericardial effusion.A single 4 mm noncalcified nodule noted in the right upper lung (10:43).Minimal fibrosis noted in the left lung base. Short sliding hiatal herniasuspected.Minimal coronary atherosclerosis seen in all 3 coronary arteries. Note madeof thoracolumbar scoliosis with mild degenerative spondylosis. Noaggressive bone lesions or any compression fracture deformity visualized inthe thoracic vertebral bodies..CONCLUSIONS: No acute intrathoracic findings. Specifically, no evidence ofacute pulmonary thromboembolism.[facility] 1 VW [id number] 15:48:07No signs of acute cardiopulmonary disease. Disclaimer: Generally, the findings on chest imaging in COVID-19 are notspecific, and overlap with other infections, including influenza, H1N1,SARS and MERS.According to the Centers for Disease Control (CDC) and the [place] [employer], viral testingremains the only specific method of diagnosiseven if CXR or CT findings are suggestive of COVID-19. PROCEDURE: CHEST XRAY CLINICAL INDICATION: COVID 19 If in room already. COMPARISON: Prior portable study of 01/02/2021 FINDINGS: Lungs: Clear. Mild underlying obstructive lung disease suspected.Congestionseen in yesterday's study in the right lower lung has resolved. Pleura: No pleural effusion or pneumothorax is seen. The heart is normal insize. No acute bony abnormality. [facility], Radiant Results Inft User - 01/03/2021 9:49 AM CSTPROCEDURE: CHEST XRAY CLINICAL INDICATION: COVID 19 If in room already.COMPARISON: Prior portable study of 01/02/2021FINDINGS:Lungs: Clear. Mild underlying obstructive lung disease suspected.Congestion seen in yesterday's study in the right lower lung has resolved.Pleura: No pleural effusion or pneumothorax is seen. The heart is normal insize.No acute bony abnormality.IMPRESSIONNo signs of acute cardiopulmonary disease.Disclaimer: Generally, the findings on chest imaging in COVID-19 are notspecific, and overlap with other infections, including influenza, H1N1,SARS and MERS.According to the Centers for Disease Control (CDC) and the [place] [employer], viral testingremains the only specific method of diagnosiseven if CXR or CT findings are suggestive of COVID-19. [facility] Basic Metabolic Panel (NA, K, CL, CO2, GLUCOSE, BUN, CREATININE, CA)2021-01-03 11:51:00 Test Item Value Reference Range Interpretation Comments NA (test code = 140 mmol/L 135-145 0196110116) K (test code = 4.0 mmol/L 3.5-5 3893482444) CL (test code = 104 mmol/L 98-108 6312651405) CO2 TOTAL (test code = 30 mmol/L 23-31 5373509398) AGAP (test code = 2-16 5396309324) BUN (test code = 13 mg/dL 7-23 3658527355) GLUCOSE (test code = 104 mg/dL 70-110 3321404552) CREATININE (test code 0.96 mg/dL 0.5-1.04 = 4415571306) CALCIUM (test code = 9.0 mg/dL 8.6-10.6 7349502207) eGFR Calculation mL/min/1.73m2 (Non-) (test code = 3291164549) eGFR Calculation mL/min/1.73m2 () (test code = 9835240260) SHAI (test code = SHAI) Association of Glomerular Filtration Rate (GFR) and Staging of Kidney Disease* + -+ + ---+| GFR (mL/min/1.73 m2) ?| With Kidney Damage ?| ?Without Kidney Damage+ -------+ ------+ ---------+| ?>90 ?| ?Stage one ?| ? Normal ?+ --+ -+ ----+| ?60-89 ?| ?Stage two ?| ? Decreased GFR ? + -+ + ---+| ?30-59 ?| ?Stage three ?| ? Stage three ? + -+ + ---+| ?15-29 ?| ?Stage four ? | ? Stage four ?+ --+ -+ ----+| ?<15 (or dialysis) ? ?| ?Stage five ? | ? Stage five ?+ --+ -+ ----+ *Each stage assumes the associated GFR level has been in effect for at least three months. ?Stages 1 to 5, with or without kidney disease, indicate chronic kidney disease. Notes: Determination of stages one and two (with eGFR >59mL/min/1.73 m2) requires estimation of kidney damage for at least three months as defined by structural or functional abnormalities of the kidney, manifested by either:Pathological abnormalities or Markers of kidney damage (including abnormalities in the composition of the blood or urine or abnormalities in imaging tests). [facility] CBC with [id number] 11:19:00 Test Item Value Reference Range Interpretation Comments WBC (test code = See_Comment H [Automated 6690-2) message] The sy stem which generated this result transmitted reference range : 4.30 - 11.10 10*3/?L. The reference range was not used to interpret this result as normal/abnormal . RBC (test code = See_Comment L [Automated 789-8) message] The sy stem which generated this result transmitted reference range : 3.93 - 5.25 10*6/?L. The reference range was not used to interpret this result as normal/abnormal . HGB (test code = 11.2 g/dL 11.6-15 L 718-7) HCT (test code = 36.2 % 35.7-45.2 4544-3) MCV (test code = 94.3 fL 80.6-95.5 787-2) MCH (test code = 29.2 pg 25.9-32.8 785-6) MCHC (test code = 30.9 g/dL 31.6-35.1 L 786-4) RDW-SD (test code = 60.8 fL 39-49.9 H 51341-1) RDW-CV (test code = 17.8 % 12-15.5 H 788-0) PLT (test code = See_Comment [Automated 777-3) message] The sy stem which generated this result transmitted reference range : 166 - 358 10*3/ ?L. The reference r niyah was not used to interpret this result as normal/abnormal . MPV (test code = 10.2 fL 9.5-12.9 09587-8) NRBC/100 WBC (test See_Comment [Automat ed code = 9325823382) message] The system which generated this result transmitted reference range : 0.0 - 10.0 /100 WBCs. The refer ence range was not u sed to interpret th is result as normal/abnormal . NRBC x10^3 (test code <0.01 See_Comment [Auto mated = 2086223172) message] The s ystem which generated this result transmitted reference range : 10*3/?L. The reference range was not used to interpret this result as normal/abnormal . GRAN MAT (NEUT) % 72.1 % (test code = 770-8) IMM GRAN % (test code 0.70 % = 7050132598) LYMPH % (test code = 15.2 % 736-9) MONO % (test code = 10.3 % 5905-5) EOS % (test code = 1.4 % 713-8) BASO % (test code = 0.3 % 706-2) GRAN MAT x10^3(ANC) 8.81 10*3/uL 1.88-7.09 H (test code = 4573105800) IMM GRAN x10^3 (test 0.08 10*3/uL 0-0.06 H code = 8970430300) LYMPH x10^3 (test code 1.85 10*3/uL 1.32-3.29 = 731-0) MONO x10^3 (test code 1.26 10*3/uL 0.33-0.92 H = 742-7) EOS x10^3 (test code = 0.17 10*3/uL 0.03-0.39 711-2) BASO x10^3 (test code 0.04 10*3/uL 0.01-0.07 = 704-7) Lab Interpretation Abnormal (test code = 66249-8) [facility] 06:05:00 Test Item Value Reference Range Interpretation Comments Procalcitonin (test 0.16 ng/mL <0.07 H code = 9905640437) SHAI (test code = SHAI) INTERPRETATION OF PROCALCITONIN RESULTS IN ADULTS >= 18 YEARS OF AGE Initiation and discontinuation of antibiotics on patients with suspected or confirmed Lower Respiratory Tract Infection in Adults >= 18 years of age. + +-------- --------+ + -----+|Procalcitonin |Interpretation ?|Antibiotic ? ? |Considerations ? |ng/mL ? | ?|recommendation | ? + +-------- --------+ + -----+| <0.1 ? | Bacterial ? ? ?| Strongly ? ? ?| ? | ?| infection very | discouraged ? | Overruling: ? | ?| unlikely ? ? ? | ? | ? Clinically unstable ? ? ? + +-------- --------+ + ? High risk for adverse ? ? | <0.25 ?| Bacterial ? ? ?| Discouraged ? | ? outcome ? | ?| infection ? ? ?| ? | ? SEE IMPORTANT NOTE ?| ?| unlikely ? ? ? | ? | ? + +-------- --------+ + -----+| >=0.25 ? ? ? | Bacterial ? ? ?| Encouraged ? ?| ? | ?| infection ? ? ?| ? | ? | ?| likely ? | ? | Consider treatment failure ?+ +------- ---------+ -+ if levels does not decrease | >0.5 ? | Bacterial ? ? ?| Strongly ? ? ?| appropriately ? | ?| infection very | encouraged ? ?| ? | ?| likely ? | ? | ? + +-------- --------+ + -----+ Discontinuation of antibiotics in high-acuity patients with suspected or confirmed sepsis in Adults >= 18 years of age. + +-------- --------+ + -----+|Procalcitonin |Interpretation ?|Antibiotic ? ? |Considerations ? |ng/mL ? | ?|recommendation | ? + +-------- --------+ + -----+| <0.25 ?| Bacterial ? ? ?| Strongly ? ? ?| ? | ?| infection very | discouraged ? | Overruling: ? | ?| unlikely ? ? ? | ? | ? Clinically unstable ? ? ? + +-------- --------+ + ? High risk for adverse ? ? | <0.5 or drop | Bacterial ? ? ?| Discouraged ? | ? outcome ? | >80% from ? ?| infection ? ? ?| ? | ? SEE IMPORTANT NOTE ?| highest PCT ?| unlikely ? ? ? | ? | ? | level ?| ?| ? | ? + +-------- --------+ + -----+| >=0.5 ?| Bacterial ? ? ?| Encouraged ? ?| ? | ?| infection ? ? ?| ? | ? | ?| likely ? | ? | Consider treatment failure ?+ +------- ---------+ -+ if levels does not decrease | >1.0 ? | Bacterial ? ? ?| Strongly ? ? ?| appropriately ? | ?| infection very | encouraged ? ?| ? | ?| likely ? | ? | ? + +-------- --------+ + -----+ Percentage of drop of Procalcitonin calculation for Discontinuation of antibiotics in high-acuity patients with suspected or confirmed sepsis in Adults >= 18 years of age. ? Procalcitonin highest{}-Procalcitonin current{}Delta Procalcitonin = x100% ? Procalcitonin current {} IMPORTANT NOTE: Procalcitonin may be elevated without bacterial infection by physiologic stress related to trauma, mauro, chronic dialysis, metastatic cancer, surgery in the past seven days, malaria, some fungal infections, and some forms of vasculitis. The interpretation algorithm may not apply to patients with immunosuppression (equivalent of >10 mg of prednisone daily), HIV with CD4 cell count < 350 cells/mm3, active malignancy on systemic chemotherapy, solid organ transplant or hematopoietic stem cell transplantation, or hospital acquired pneumonia. Additionally, some clinical trials of procalcitonin have excluded patients with shock requiring vasopressor use, acute respiratory failure requiring mechanical ventilation, or those with known lung abscess/empyema. For further information please refer to:[email or web address] Lab Interpretation Abnormal (test code = 52794-3) [facility] RETROPERITONEAL [id number] 04:18:20 Significantly limited examination secondary to overlying body habitus andpatient participation, grossly no ?hydronephrosis or nephrolithiasis. No overt abscess or perinephric fluid collection within significantlimitations of exam. Preliminary Report Dictated by Resident: Harshal Urbano MD., have reviewed this study and agree with the abovereport.EXAM: US RETROPERITONEAL COMPLETE HISTORY: 60 years-old Female with UTI for 2 weeks . TECHNIQUE: Ultrasound of kidneys and bladder was performed with grayscaleand selected color Doppler imaging. [employer] images were obtained forthe record. COMPARISON: CT abdomen and pelvis with contrast, 09/09/2019. FINDINGS: Technical quality: Si gnificantly limited evaluation secondary to overlyingbody habitus and patient respiration. KIDNEYS:RIGHT:Normal in size measuring 9.1 x 5.5 x 4.4 cm (114 mL).Parenchyma: Normal renal cortical thickness. No overt focal solid or cysticrenal lesions are detected, however significant limited evaluation.Col lecting System: No hydronephrosis. LEFT:Normal in size measuring 10.3 x 5.1 x 4.8 cm (132 mL).Parenchyma:No overt focal solid or cystic renal lesions are detected,however significant limited evaluation.Collecting System: No hydronephrosis. BLADDER: Bladder is distended and unremarkable [place], Radiant Re sults Inft User - 01/02/2021 10:19 PM CSTEXAM: US RETROPERITONEAL COMPLETEHISTORY: 60 years-old Female with UTI for 2 weeks .TECHNIQUE: Ultrasound of kidneys and bladder was performed with grayscaleandselected color Doppler imaging. [place] [employer] images were obtained forthe record.COMPARISON: CT abdo men and pelvis with contrast, 09/09/2019.FINDINGS: Technical quality: Significantly limited evaluation secondary to overlyingbody habitus and patient respiration.KIDNEYS:RIGHT:Normal in size measuring 9.1 x 5.5 x 4.4 cm (114 mL).Parenchyma: Normal renal cortical thickness. No overt focal solid or cysti crenal lesions are detected, however significant limited evaluation.Collecting System: No hydronephrosis.LEFT:Normal in size measuring 10.3 x 5.1 x 4.8 cm (132 mL).Parenchyma:No overt focal solid or cystic renal lesions are detected,however significant limited evaluation.Collecting System: No hydronephrosis.BLADDER: Bladder is distended and unremarkableIMPRESSIONSignificantly limited examination secondary to overlying body habitus andpatient participation, grossly no hydronephrosis or nephrolithiasis.No overt abscess or perinephric fluid collection within significantlimitations of exam.Preliminary Report Dictated by Resident: Kevin Kumar, Harshal Herrera MD., have reviewed this study and agreewith the abovereport.[facility] CenterODILIAPRISMA [facility] HOSPITALAVIS [id number] 00:43:00 Test Item Value Reference Range Interpretation Comments TROPONIN I (test <0.012 See_Comment [Automated code = 1360083721) message] The system which generated this result transmitted reference range : <=0.034 ng/mL. The reference range was not used to interpr et this result as normal/abnormal . SHAI (test code = Equal or Less than SHAI) 0.034 ng/ml---Normal ?Note: Cardiac troponin begins to rise 3-4 hours after the onset of ischemia. Repeat in 4-6 hours if the sample was drawn within 3-4 hours of the onset of the symptom and found normal. Between 0.035 and 0.120 ng/mL--- Borderline. Questionable myocardial injury or necrosis ? ?Note: Serial measurement may be necessary to confirm or exclude the diagnosis of myocardial injury or necrosis; Clinical correlation (symptoms, EKGs, imaging studies, and others) required; Repeat in 4-6 hours if clinically indicated. ? Equal or Higher than 0.121 ng/mL---Abnormal. Myocardial Injury or Necrosis Likely ? Biotin has been reported to cause a negative bias, interpret results relative to patient's use of biotin. ? Lab Interpretation Normal (test code = 37793-1) [facility] CenterN-TERMINAL [id number] 23:43:00 Test Item Value Reference Range Interpretation Comments NT-proBNP (test code 346 pg/mL See_Comment H [Autom ated = 2218036617) message] The system which generated this result transmitted reference range : <=125. The reference range was not used to interpret this result as normal/abnormal . SHAI (test code = SHAI) Biotin has been reported to cause a negative bias, interpret results relative to patient's use of biotin. Lab Interpretation Abnormal (test code = 03285-3) [facility] CenterD-[id number] 20:12:00 Test Item Value Reference Interpretation Comments Range D-DIMER (test code = See_Comment H [Autom ated [id number]) message] The system which generated this result transmitted reference range : <0.41 ?g/mL (FEU). The reference range was not used to interpret this result as normal/abnormal . SHAI (test code = This test may be SHAI) used in conjunction with a clinical pretest probability (PTP) assessment model to exclude venous thromboembolism (VTE) in patients suspected of deep venous thrombosis (DVT) and pulmonary embolism (PE) A D-Dimer value less than 0.50 ?g/ml (FEU) has a negative predicative value of 96 to 100% (95% CI)and 97 to 100% (95% CI) as an aid in the diagnosis of deep vein thrombosis (DVT) and pulmonary embolism when there is low or moderate pretest probability of PE or DVT. D-Dimer values are expressed in initial fibrinogen equivalent units (FEU)" The assay results should be used with other information, including the clinical context, in forming a diagnosis. Lab Interpretation Abnormal (test code = 73693-0) [facility] WITH [id number] 20:08:00 Test Item Value Reference Range Interpretation Comments WBC (test code = See_Comment H [Automated 6690-2) message] The sy stem which generated this result transmitted reference range : 4.30 - 11.10 10*3/?L. The reference range was not used to interpret this result as normal/abnormal . RBC (test code = See_Comment L [Automated 789-8) message] The sy stem which generated this result transmitted reference range : 3.93 - 5.25 10*6/?L. The reference range was not used to interpret this result as normal/abnormal . HGB (test code = 11.2 g/dL 11.6-15 L 718-7) HCT (test code = 35.6 % 35.7-45.2 L 4544-3) MCV (test code = 92.5 fL 80.6-95.5 787-2) MCH (test code = 29.1 pg 25.9-32.8 785-6) MCHC (test code = 31.5 g/dL 31.6-35.1 L 786-4) RDW-SD (test code = 59.0 fL 39-49.9 H 46893-9) RDW-CV (test code = 17.4 % 12-15.5 H 788-0) PLT (test code = See_Comment [Automated 777-3) message] The sy stem which generated this result transmitted reference range : 166 - 358 10*3/ ?L. The reference r niyah was not used to interpret this result as normal/abnormal . MPV (test code = 9.7 fL 9.5-12.9 66173-1) NRBC/100 WBC (test See_Comment [Automat ed code = 6912125013) message] The system which generated this result transmitted reference range : 0.0 - 10.0 /100 WBCs. The refer ence range was not u sed to interpret th is result as normal/abnormal . NRBC x10^3 (test code <0.01 See_Comment [Auto mated = 5672113468) message] The s ystem which generated this result transmitted reference range : 10*3/?L. The reference range was not used to interpret this result as normal/abnormal . GRAN MAT (NEUT) % 68.0 % (test code = 770-8) IMM GRAN % (test code 0.90 % = 1695209671) LYMPH % (test code = 18.1 % 736-9) MONO % (test code = 11.6 % 5905-5) EOS % (test code = 0.9 % 713-8) BASO % (test code = 0.5 % 706-2) GRAN MAT x10^3(ANC) 9.30 10*3/uL 1.88-7.09 H (test code = 4402854661) IMM GRAN x10^3 (test 0.13 10*3/uL 0-0.06 H code = 4463169833) LYMPH x10^3 (test code 2.48 10*3/uL 1.32-3.29 = 731-0) MONO x10^3 (test code 1.59 10*3/uL 0.33-0.92 H = 742-7) EOS x10^3 (test code = 0.12 10*3/uL 0.03-0.39 711-2) BASO x10^3 (test code 0.07 10*3/uL 0.01-0.07 = 704-7) Lab Interpretation Abnormal (test code = 70345-6) [facility] CenterGIOVANNY [id number] 20:08:00 Test Item Value Reference Range Interpretation Comments TROPONIN I (test <0.012 See_Comment [Automated code = 5470532031) message] The system which generated this result transmitted reference range : <=0.034 ng/mL. The reference range was not used to interpr et this result as normal/abnormal . SHAI (test code = Equal or Less than SHAI) 0.034 ng/ml---Normal ?Note: Cardiac troponin begins to rise 3-4 hours after the onset of ischemia. Repeat in 4-6 hours if the sample was drawn within 3-4 hours of the onset of the symptom and found normal. Between 0.035 and 0.120 ng/mL--- Borderline. Questionable myocardial injury or necrosis ? ?Note: Serial measurement may be necessary to confirm or exclude the diagnosis of myocardial injury or necrosis; Clinical correlation (symptoms, EKGs, imaging studies, and others) required; Repeat in 4-6 hours if clinically indicated. ? Equal or Higher than 0.121 ng/mL---Abnormal. Myocardial Injury or Necrosis Likely ? Biotin has been reported to cause a negative bias, interpret results relative to patient's use of biotin. ? Lab Interpretation Normal (test code = 31745-8) [facility] CenterURINALYSIS2021-02-09 19:58:00 Test Item Value Reference Range Interpretation Comments APPEARANCE (test code = Cloudy Clear A 6503267956) COLOR (test code = Lulu Yellow A 5351544150) PH (test code = 4.8-8.0 8859113517) SP GRAVITY (test code = 1.003-1.030 3522675272) GLU U QUAL (test code = Normal Normal 3674047978) BLOOD (test code = 1+ Negative A 5531235931) KETONES (test code = Negative Negative 1787693769) PROTEIN (test code = 30 mg/dL Negative A 2887-8) UROBILIN (test code = 2.0 mg/dL Normal A 4184629278) BILIRUBIN (test code = Negative Negative 8118540676) NITRITE (test code = Positive Negative A 4500159273) LEUK NICO (test code = 500/uL Negative A 1891823677) RBC/HPF (test code = See_Comment H [Autom ated message] 7592368158) The system [employer] generated this result transmit shar reference range : 0 - 3 HPF. The refe rence range was not u sed to interpret th is result as normal/abnormal . WBC/HPF (test code = See_Comment H [Autom ated message] 4499664856) The system [employer] generated this result transmit shar reference range : 0 - 5 HPF. The refe rence range was not u sed to interpret th is result as normal/abnormal . BACTERIA (test code = Moderate Negative A 1095000419) AMORPHOUS (test code = Rare Rare HPF 6284370479) SQ EPITH (test code = HPF 3483427555) YEAST BUD (test code = See_Comment H [Aut omated message] 5866515694) The system [employer] generated this result transmit shar reference range : <=1 HPF. The refere nce range was not u sed to interpret th is result as normal/abnormal . Lab Interpretation (test Abnormal code = 28439-8) [facility]. METABOLIC PANEL (76550)2021-01-02 19:57:00 Test Item Value Reference Range Interpretation Comments NA (test code = 139 mmol/L 135-145 0319712264) K (test code = 3.9 mmol/L 3.5-5 2997219897) CL (test code = 105 mmol/L 98-108 9753689754) CO2 TOTAL (test code = 28 mmol/L 23-31 7778162818) AGAP (test code = 2-16 6815878501) BUN (test code = 18 mg/dL 7-23 6434707439) GLUCOSE (test code = 108 mg/dL 70-110 2959681862) CREATININE (test code = 1.18 mg/dL 0.5-1.04 H 5307244260) TOTAL BILI (test code = 0.4 mg/dL 0.1-1.9 9830609569) CALCIUM (test code = 8.9 mg/dL 8.6-10.6 1569133129) T PROTEIN (test code = 7.1 g/dL 6.3-8.2 3400010892) ALBUMIN (test code = 4.1 g/dL 3.5-5 7530784168) ALK PHOS (test code = 99 U/L 34-122 4707810878) ALTv (test code = 16 U/L 5-35 1742-6) AST(SGOT) (test code = 21 U/L 13-40 7313713495) eGFR Calculation mL/min/1.73m2 (Non-) (test code = 1864395838) eGFR Calculation mL/min/1.73m2 () (test code = 2746180749) SHAI (test code = SHAI) Association of Glomerular Filtration Rate (GFR) and Staging of Kidney Disease* + --+ --+ ------+| GFR (mL/min/1.73 m2) ?| With Kidney Damage ?| ?Without Kidney Damage+ --------+ --------+ +| ?>90 ?| ?Stage one ?| ? Normal ?+ ---+ ---+ -------+| ?60-89 ?| ?Stage two ?| ? Decreased GFR ? + --+ --+ ------+| ?30-59 ?| ?Stage three ?| ? Stage three ? + --+ --+ ------+| ?15-29 ?| ?Stage four ? | ? Stage four ?+ ---+ ---+ -------+| ?<15 (or dialysis) ? ?| ?Stage five ? | ? Stage five ?+ ---+ ---+ -------+ *Each stage assumes the associated GFR level has been in effect for at least three months. ?Stages 1 to 5, with or without kidney disease, indicate chronic kidney disease. Notes: Determination of stages one and two (with eGFR >59mL/min/1.73 m2) requires estimation of kidney damage for at least three months as defined by structural or functional abnormalities of the kidney, manifested by either:Pathological abnormalities or Markers of kidney damage (including abnormalities in the composition of the blood or urine or abnormalities in imaging tests). Lab Interpretation Abnormal (test code = 27670-8) [facility] CenterCOVID-[facility] (ID NOW RAPID TESTING)2021-01-02 19:53:00 Test Item Value Reference Range Interpretation Comments SARS-CoV-2 Rapid ID NOW Not Detected Not Detected (test code = 29705-8) SHAI (test code = SHAI) ID NOW COVID-19 Assay is an isothermal nucleic acid amplification test intended for the qualitative detection of nucleic acid from SARS-CoV-2 viral RNA in nasopharyngeal (WEATHERIZATION OPERATIONS MANAGER) specimens. It is used under Emergency Use Authorization (EUA) by FDA. The limit of detection (LOD) of the assay is 125 Genome Equivalents/mL. A positive result is indicative of the presence of SARS-CoV-2 RNA. ?Clinical correlation with patient history and other diagnostic information is necessary to determine patient infection status. A negative (Not Detected) result does not preclude SARS-CoV-2 infection. In patients with clinical symptoms and other tests that are consistent with SARS-CoV-2 infection, negative results should be treated as presumptive negative and a new specimen should be tested with alternative PCR molecular test. Invalid: Please collect a new specimen for repeat patient testing if clinically indicated. Lab Interpretation Normal (test code = 97243-0) [facility] CenterXR CHEST 1 [id number] 19:32:15HISTORY: Shortness of breath. TECHNIQUE: Portable AP erect view of the chest is obtained. No prior cheststudy available for comparison. FINDINGS: Mild upper lobe predominant obstructive lung disease suspected.Minimal congestion noted in the right lower lung without focal area ofconsolidation. Cardiac size is upper normal. No pneumothorax or pleuraleffusion. Moderate left glenohumeral joint degenerative arthritis noted. CONCLUSIONS: Mild congestion in right lower lung without focal areas ofconsolidation. [facility], Radiant Results Inft User - 01/02/2021 1:33 PM CSTHISTORY: Shortness of breath.TECHNIQUE:Portable AP erect view of the chest is obtained. No prior cheststudy available for comparison.FINDINGS: Mild upper lobe predominant obstructive lung disease suspected.Minimal congestion noted in the right lower lung without focal area ofconsolidation. Cardiac size is upper normal. No pneumothorax or pl euraleffusion. Moderate left glenohumeral joint degenerative arthritis noted. CONCLUSIONS: Mild congestion in right lower lung without focal areas ofconsolidation.[facility] CenterTROPONIN [id number] 02:12:00 Test Item Value Reference Range Interpretation Comments TROPONIN I (test <0.012 See_Comment [Automated code = 8778779861) message] The system which generated this result transmitted reference range : <=0.034 ng/mL. The reference range was not used to interpr et this result as normal/abnormal . SHAI (test code = Equal or Less than SHAI) 0.034 ng/ml---Normal ?Note: Cardiac troponin begins to rise 3-4 hours after the onset of ischemia. Repeat in 4-6 hours if the sample was drawn within 3-4 hours of the onset of the symptom and found normal. Between 0.035 and 0.120 ng/mL--- Borderline. Questionable myocardial injury or necrosis ? ?Note: Serial measurement may be necessary to confirm or exclude the diagnosis of myocardial injury or necrosis; Clinical correlation (symptoms, EKGs, imaging studies, and others) required; Repeat in 4-6 hours if clinically indicated. ? Equal or Higher than 0.121 ng/mL---Abnormal. Myocardial Injury or Necrosis Likely ? Biotin has been reported to cause a negative bias, interpret results relative to patient's use of biotin. ? Lab Interpretation Normal (test code = 55013-0) [facility] CenterCOVID[facility] (ID NOW RAPID TESTING)2020-06-13 02:05:00 Test Item Value Reference Range Interpretation Comments SARS-CoV-2 Rapid ID NOW Not Detected Not Detected (test code = 69653-5) SHAI (test code = SHAI) ID NOW COVID-19 Assay is an isothermal nucleic acid amplification test intended for the qualitative detection of nucleic acid from SARS-CoV-2 viral RNA in nasopharyngeal (WEATHERIZATION OPERATIONS MANAGER) specimens. It is used under Emergency Use Authorization (EUA) by FDA. The limit of detection (LOD) of the assay is 125 Genome Equivalents/mL. A positive result is indicative of the presence of SARS-CoV-2 RNA. ?Clinical correlation with patient history and other diagnostic information is necessary to determine patient infection status. A negative (Not Detected) result does not preclude SARS-CoV-2 infection. In patients with clinical symptoms and other tests that are consistent with SARS-CoV-2 infection, negative results should be treated as presumptive negative and a new specimen should be tested with alternative PCR molecular test. Invalid: Please collect a new specimen for repeat patient testing if clinically indicated. Lab Interpretation Normal (test code = 42796-4) [facility] CenterPROTHROMBIN TIME / [id number] 02:02:00 Test Item Value Reference Range Interpretation Comments PROTIME PATIENT (test See_Comment [Auto mated message] code = 5964-2) The system [employer] generated this result transmitted ref erence range: 12.0 - 1 4.7 Seconds. The re ference range was not u sed to interpret this result as normal/abnor mal. INR (test code = 6301-6) Nor mal INR <1.1; Warfarin Therap eutic range 2.0 to 3. 0 or 2.5 to 3.5, dep ending upon the indica tions. Lab Interpretation (test Normal code = 62442-0) [facility] CenteraPTT2020-07-21 02:01:00 Test Item Value Reference Range Interpretation Comments APTT Patient (test See_Comment [Automat ed code = 3173-2) message] The system which generated this result transmitted reference range : 23 - 38 Seconds . The reference range was not used to interpr et this result as normal/abnormal . SHAI (test code = SHAI) The [facility] patient population mean normal value for aPTT is 30 seconds. Lab Interpretation Normal (test code = 12616-7) [facility]. METABOLIC PANEL (62365)2020-06-13 02:01:00 Test Item Value Reference Range Interpretation Comments NA (test code = 135 mmol/L 135-145 0946935008) K (test code = 4.4 mmol/L 3.5-5 0475000781) CL (test code = 105 mmol/L 98-108 1326138038) CO2 TOTAL (test code = 24 mmol/L 23-31 5814127012) AGAP (test code = 2-16 5313110738) BUN (test code = 24 mg/dL 7-23 H 4226732984) GLUCOSE (test code = 95 mg/dL 70-110 1861885950) CREATININE (test code = 1.16 mg/dL 0.5-1.04 H 4334087697) TOTAL BILI (test code = 0.2 mg/dL 0.1-1.0 1723479004) CALCIUM (test code = 9.2 mg/dL 8.6-10.6 3239987870) T PROTEIN (test code = 7.2 g/dL 6.3-8.2 0433216787) ALBUMIN (test code = 4.1 g/dL 3.5-5 0545735319) ALK PHOS (test code = 62 U/L 34-122 4746161532) ALTv (test code = 9 U/L 5-35 1742-6) AST(SGOT) (test code = 20 U/L 13-40 8028643203) eGFR Calculation mL/min/1.73m2 (Non-) (test code = 4413859162) eGFR Calculation mL/min/1.73m2 () (test code = 6314813965) SHAI (test code = SHAI) Association of Glomerular Filtration Rate (GFR) and Staging of Kidney Disease* + --+ --+ ------+| GFR (mL/min/1.73 m2) ?| With Kidney Damage ?| ?Without Kidney Damage+ --------+ --------+ +| ?>90 ?| ?Stage one ?| ? Normal ?+ ---+ ---+ -------+| ?60-89 ?| ?Stage two ?| ? Decreased GFR ? + --+ --+ ------+| ?30-59 ?| ?Stage three ?| ? Stage three ? + --+ --+ ------+| ?15-29 ?| ?Stage four ? | ? Stage four ?+ ---+ ---+ -------+| ?<15 (or dialysis) ? ?| ?Stage five ? | ? Stage five ?+ ---+ ---+ -------+ *Each stage assumes the associated GFR level has been in effect for at least three months. ?Stages 1 to 5, with or without kidney disease, indicate chronic kidney disease. Notes: Determination of stages one and two (with eGFR >59mL/min/1.73 m2) requires estimation of kidney damage for at least three months as defined by structural or functional abnormalities of the kidney, manifested by either:Pathological abnormalities or Markers of kidney damage (including abnormalities in the composition of the blood or urine or abnormalities in imaging tests). Lab Interpretation Abnormal (test code = 36386-0) [facility] CenterLIPASE, [id number] 02:01:00 Test Item Value Reference Range Interpretation Comments LIPASE (test code = 5935781425) 195 U/L 0-220 Lab Interpretation (test code = Normal 61019-1) [facility] CenterURINALYSIS2020-07-21 01:52:00 Test Item Value Reference Range Interpretation Comments APPEARANCE (test code = Clear Clear 4204054685) COLOR (test code = Yellow Yellow 7159570816) PH (test code = 4.8-8.0 2675770312) SP GRAVITY (test code = 1.003-1.030 3268991574) GLU U QUAL (test code = Normal Normal 3500876492) BLOOD (test code = Negative Negative 9823485964) KETONES (test code = Negative Negative 9352175463) PROTEIN (test code = Negative Negative 2887-8) UROBILIN (test code = Normal Normal 3233153406) BILIRUBIN (test code = Negative Negative 8735344752) NITRITE (test code = Negative Negative 9241602345) LEUK NICO (test code = 75/uL Negative A 8102472636) RBC/HPF (test code = See_Comment [Autom ated message] 4092411059) The system [employer] generated this result transmitted ref erence range: 0 - 3 HP F. The reference range was not used to int erpret this result as normal/abnormal . WBC/HPF (test code = See_Comment [Autom ated message] 3500718287) The system [employer] generated this result transmitted ref erence range: 0 - 5 HP F. The reference range was not used to int erpret this result as normal/abnormal . BACTERIA (test code = Negative Negative 3704908006) SQ EPITH (test code = <1 HPF 0229471864) Lab Interpretation (test Abnormal code = 59815-9) [facility] WITH [id number] 01:51:00 Test Item Value Reference Range Interpretation Comments WBC (test code = See_Comment [Automated 4390-2) message] The sy stem which generated this result transmitted reference range : 4.30 - 11.10 10*3/?L. The reference range was not used to interpret this result as normal/abnormal . RBC (test code = See_Comment [Automated 759-8) message] The sy stem which generated this result transmitted reference range : 3.93 - 5.25 10*6/?L. The reference range was not used to interpret this result as normal/abnormal . HGB (test code = 12.2 g/dL 11.6-15 718-7) HCT (test code = 37.7 % 35.7-45.2 4544-3) MCV (test code = 95.4 fL 80.6-95.5 787-2) MCH (test code = 30.9 pg 25.9-32.8 785-6) MCHC (test code = 32.4 g/dL 31.6-35.1 786-4) RDW-SD (test code = 46.9 fL 39-49.9 78495-0) RDW-CV (test code = 13.2 % 12-15.5 788-0) PLT (test code = See_Comment [Automated 777-3) message] The sy stem which generated this result transmitted reference range : 166 - 358 10*3/ ?L. The reference r niyah was not used to interpret this result as normal/abnormal . MPV (test code = 10.1 fL 9.5-12.9 61448-2) NRBC/100 WBC (test See_Comment [Automat ed code = 5286992446) message] The system which generated this result transmitted reference range : 0.0 - 10.0 /100 WBCs. The refer ence range was not u sed to interpret th is result as normal/abnormal . NRBC x10^3 (test code <0.01 See_Comment [Auto mated = [id number]) message] The s ystem which generated this result transmitted reference range : 10*3/?L. The reference range was not used to interpret this result as normal/abnormal . GRAN MAT (NEUT) % 56.9 % (test code = 770-8) IMM GRAN % (test code 0.60 % = [id number]) LYMPH % (test code = 30.4 % 736-9) MONO % (test code = 9.8 % 5905-5) EOS % (test code = 1.7 % 713-8) BASO % (test code = 0.6 % 706-2) GRAN MAT x10^3(ANC) 6.18 10*3/uL 1.88-7.09 (test code = 7009420502) IMM GRAN x10^3 (test 0.06 10*3/uL 0-0.06 code = 9276169278) LYMPH x10^3 (test code 3.29 10*3/uL 1.32-3.29 = 731-0) MONO x10^3 (test code 1.06 10*3/uL 0.33-0.92 H = 742-7) EOS x10^3 (test code = 0.18 10*3/uL 0.03-0.39 711-2) BASO x10^3 (test code 0.06 10*3/uL 0.01-0.07 = 704-7) Lab Interpretation Abnormal (test code = 18105-3) [facility]
[2023-07-09 14:30] LABS: Absolute Lymphocytes (CBC) 2.1 K/uL (0.7-4.9); Hematocrit 44.7 % (36.0-45.0); Lymphocytes % 20.5 % (15.3-44.8); MCV 92.6 fL (80-100); MPV 7.5 fL (7.6-11.3); Platelets 343 thou/uL (152-406); RBC Red Blood Cell Count 4.83 M/uL (3.86-4.86)
[2023-07-09] MEDS ORDERED: METHYLPREDNISOLONE 125 MG INJ ONE (14:37)
[2023-07-09] MEDS ORDERED: ALBUTEROL 2.5 MG/3 ML NEB SOL ONE (14:38)
[2023-07-09] MEDS ORDERED: IPRATROPIUM BROM 0.5MG/2.5ML ONE (14:38)
[2023-07-09 14:52] LABS: Albumin 3.6 g/dL (3.4-5.0); Bilirubin Direct 0.1 mg/dL (0-0.2); Bilirubin Indirect, Calculated 0.3 mg/dL (0.2-0.8); Bilirubin Total 0.4 mg/dL (0.2-1.0); Magnesium 2.1 mg/dL (1.6-2.4); Potassium 4.3 mEq/L (3.5-5.1); Protein, Total 7.4 g/dL (6.4-8.2)
--- NOTE | 2023-07-09 16:22 | RAD REPORT ---
EXAM DESCRIPTION: RAD - Chest Single View - 07/09/2023 3:37 pm CLINICAL HISTORY: DYSPNEA Chest pain. COMPARISON: <Comparisons> FINDINGS: Portable technique limits examination quality. The lungs are diffusely emphysematous. Patchy opacity in the right lung base likely represents infilt rate/pneumonia. The heart is normal in size. No displaced fractures.
--- NOTE | 2023-07-09 17:09 | ER ---
Nurse's Notes [facility] Name: Bev Buckley Age: 62 yrs Sex: Female : 1960 Arrival Date: 07/09/2023 Time: 13:33 Bed 15 Private MD: Diagnosis: Pneumonia, unspecified organism;Hypoxemia Presentation: 07/09 13:55 Chief complaint: Patient states: she came to the ED for low O2 levels. Pt states that cm10 she has been feeling increased shortness of breath for the last 4 days. Pt states that she walked from the parking lot to her doctors office and her O2 decreased to 83%. Coronavirus screen: Vaccine status: Patient reports receiving the 2nd dose of the covid vaccine. Ebola Screen: Patient denies travel to an Ebola-affected area in the 21 days before illness onset. No symptoms or risks identified at this time. Initial Sepsis Screen: Does the patient meet any 2 criteria? No. Patient's initial sepsis screen is negative. Does the patient have a suspected source of infection? No. Patient's initial sepsis screen is negative. Risk Assessment: Do you want to hurt yourself or someone else? Patient reports no desire to harm self or others. Onset of symptoms was July 09, 2023. 13:55 Method Of Arrival: Wheelchair cm10 13:55 Acuity: MILADIS 3 cm10 Historical: - Allergies: 13:57 PENICILLINS; cm10 13:57 Prednisone; cm10 13:57 Lisinopril; cm10 - PMHx: 13:57 COPD; cm10 - Immunization history:: Adult Immunizations unknown. - Social history:: Smoking status: Patient reports the use of cigarette tobacco products, smokes one pack cigarettes per day. - Family history:: not pertinent. Screenin:00 [facility] ED Fall Risk Assessment (Adult) History of falling in the last 3 months, ko1 including since admission No falls in past 3 months (0 pts) Confusion or Disorientation No (0 pts) Intoxicated or Sedated No (0 pts) Impaired Gait No (0 pts) Mobility Assist Device Used No (0 pt) Altered Elimination No (0 pt) Score/Fall Risk Level 0 - 2 = Low Risk Oriented to surroundings, Maintained a safe environment, Educated pt \T\ family on fall prevention, incl call for assistance when getting out of bed, Assessed \T\ reinforced patient's understanding of fall precautions, Provided non-skid footwear, Hourly rounding (assess needs \T\ fall precautionary measures) done, Used ambulatory aids as needed (educated on \T\ assisted with). Abuse screen: Denies threats or abuse. Denies injuries from another. Nutritional screening: No deficits noted. Tuberculosis screening: No symptoms or risk factors identified. Assessment: 14:00 General: Appears in no apparent distress. uncomfortable, Behavior is calm, cooperative, ko1 appropriate for age. Pain: Denies pain. Neuro: No deficits noted. Cardiovascular: No deficits noted. Respiratory: Reports shortness of breath on exertion air hunger Breath sounds are diminished bilaterally. GI: No deficits noted. : No deficits noted. EENT: No deficits noted. Derm: No deficits noted. Musculoskeletal: No deficits noted. 19:00 Reassessment: Patient appears in no apparent distress at this time. Patient and/or jb4 family updated on plan of care and expected duration. Pain level reassessed. Patient is alert, oriented x 3, equal unlabored respirations, skin warm/dry/pink. 20:00 Reassessment: Patient appears in no apparent distress at this time. Patient and/or jb4 family updated on plan of care and expected duration. Pain level reassessed. Patient is alert, oriented x 3, equal unlabored respirations, skin warm/dry/pink. Vital Signs: 13:55 BP 143 / 88; Pulse 89; Resp 18; Temp 98.1(TE); Pulse Ox 97% ; Weight 75.75 kg; Height 5 cm10 ft. 3 in. ; Pain 0/10; 14:00 BP 146 / 87; Pulse 85; Resp 20; Pulse Ox 97% on R/A; ko1 15:00 BP 141 / 80; Pulse 88; Resp 16; Pulse Ox 98% ; ko1 16:05 BP 137 / 94; Pulse 65; Resp 18; Pulse Ox 98% ; ko1 17:00 BP 139 / 89; Pulse 84; Resp 18; Pulse Ox 95% ; ko1 18:00 BP 138 / 93; Pulse 86; Resp 16; Pulse Ox 96% ; ko1 19:00 BP 144 / 61; Pulse 82; Resp 16; Pulse Ox 97% on R/A; jb4 13:55 Body Mass Index 29.58 (75.75 kg, 160.02 cm) cm10 13:55 Pain Scale: Adult cm10 ED Course: 13:35 Patient arrived in ED. ts1 13:57 Triage completed. cm10 13:57 Arm band placed on Patient placed in waiting room, on a stretcher. cm10 14:00 Patient has correct armband on for positive identification. Bed in low position. Call ko1 light in reach. Side rails up X 1. Provided Education on: NA. lodging house keeper on. Pulse ox on. NIBP on. Door closed. Noise minimized. Lights dimmed. Warm blanket given. 14:00 Inserted saline lock: 20 gauge in right antecubital area, using aseptic technique. ko1 Blood collected. 14:05 Jacques Lang MD is Attending Physician. rt 14:08 Roz Ruth, AMOL is Primary Nurse. ko1 14:24 Basic Metabolic Panel Sent. ko1 14:24 CBC with Diff Sent. ko1 14:25 LFT's Sent. ko1 14:25 D-Dimer Sent. ko1 14:25 Magnesium Sent. ko1 14:25 NT PRO-BNP Sent. ko1 14:25 Troponin HS Sent. ko1 15:38 XRAY Chest (1 view) In Process Unspecified. EDMS 16:05 No provider procedures requiring assistance completed. ko1 17:09 Atif Us MD is Hospitalizing Provider. rt Administered Medications: 14:28 Drug: DuoNeb Nebulize (3:1) (2.5 mg - 0.5 mg) 3 ml Route: Nebulizer; ko1 14:28 Drug: MethylPrednisoLONE IVP 125 mg Route: IVP; Site: right antecubital; ko1 17:10 CANCELLED (Physician Discretion): Meropenem IV 1 grams IV at calculated rate once; (mix rt in NS 100 mL) 17:10 CANCELLED (Physician Discretion): vancoMYCIN IVPB 1 grams IVPB once over 2 hrs rt 17:34 Drug: LevaQUIN IVPB 750 mg Route: IVPB; Site: right antecubital; ko1 Outcome: 17:09 Decision to Hospitalize by Provider. rt 19:00 Admitted to Tele accompanied by nurse, via wheelchair, room 405, with chart. jb4 19:00 Condition: stable 19:00 Discharge instructions given to patient, Instructed on the need for admit, Demonstrated understanding of instructions. 20:09 Patient left the ED. jb4 Signatures: Dispatcher [employer] Jone King RN RN jb4 Roz Ruth RN RN ko1 Jacques Lang MD MD rt Simpson, Tanya, PAS PAS ts1 Martinez, Clarissa, RN RN cm10
--- NOTE | 2023-07-09 17:10 | EDPHYS ---
Physician Documentation [facility] Name: Bev Buckley Age: 62 yrs Sex: Female : 1960 Arrival Date: 07/09/2023 Time: 13:33 Bed 15 Private MD: ED Physician Jacques Lang HPI: 07/09 14:52 This 62 yrs old Female presents to ER via Wheelchair with complaints of LOW O2 Level. rt 14:52 Patient presents to the ED with dyspnea, reported low oxygen level at her doctor's rt office today. The patient has been short of breath for about 2 days, worsening today. She does report a wheezing. She reports chills, sweating as well. She went to her primary care's office today when she had worsening dyspnea on exertion, reported oxygen saturations of 83% on room air, no baseline oxygen requirement. Denies other acute complaints at this time, symptoms are moderate severity, no other aggravating or alleviating factors.. Historical: - Allergies: 13:57 PENICILLINS; cm10 13:57 Prednisone; cm10 13:57 Lisinopril; cm10 - PMHx: 13:57 COPD; cm10 - Immunization history:: Adult Immunizations unknown. - Social history:: Smoking status: Patient reports the use of cigarette tobacco products, smokes one pack cigarettes per day. - Family history:: not pertinent. ROS: 14:52 Cardiovascular: Negative for chest pain, palpitations, and edema, Abdomen/GI: Negative rt for abdominal pain, nausea, vomiting, diarrhea, and constipation, MS/Extremity: Negative for injury and deformity, Skin: Negative for injury, rash, and discoloration, Neuro: Negative for headache, weakness, numbness, tingling, and seizure, Psych: Negative for depression, anxiety, suicide ideation, homicidal ideation, and hallucinations. 14:52 Constitutional: Positive for chills, malaise. 14:52 Respiratory: Positive for cough, shortness of breath. Exam: 14:52 ECG was reviewed by the Attending Physician. rt 14:52 Respiratory: Wheezes heard on all lung garibay, no respiratory distress. 14:54 Constitutional: This is a well developed, well nourished patient who is awake, alert, rt and in no acute distress. Head/Face: Normocephalic, atraumatic. Chest/axilla: Normal chest wall appearance and motion. Nontender with no deformity. No lesions are appreciated. Cardiovascular: Regular rate and rhythm with a normal S1 and S2. No gallops, murmurs, or rubs. Normal PMI, no JVD. No pulse deficits. Abdomen/GI: Soft, non-tender, with normal bowel sounds. No distension or tympany. No guarding or rebound. No evidence of tenderness throughout. Skin: Warm, dry with normal turgor. Normal color with no rashes, no lesions, and no evidence of cellulitis. MS/ Extremity: Pulses equal, no cyanosis. Neurovascular intact. Full, normal range of motion. Neuro: Awake and alert, GCS 15, oriented to person, place, time, and situation. Cranial nerves II-XII grossly intact. Motor strength 5/5 in all extremities. Sensory grossly intact. Cerebellar exam normal. Normal gait. Psych: Awake, alert, with orientation to person, place and time. Behavior, mood, and affect are within normal limits. Vital Signs: 13:55 BP 143 / 88; Pulse 89; Resp 18; Temp 98.1(TE); Pulse Ox 97% ; Weight 75.75 kg; Height 5 cm10 ft. 3 in. ; Pain 0/10; 14:00 BP 146 / 87; Pulse 85; Resp 20; Pulse Ox 97% on R/A; ko1 15:00 BP 141 / 80; Pulse 88; Resp 16; Pulse Ox 98% ; ko1 16:05 BP 137 / 94; Pulse 65; Resp 18; Pulse Ox 98% ; ko1 17:00 BP 139 / 89; Pulse 84; Resp 18; Pulse Ox 95% ; ko1 18:00 BP 138 / 93; Pulse 86; Resp 16; Pulse Ox 96% ; ko1 19:00 BP 144 / 61; Pulse 82; Resp 16; Pulse Ox 97% on R/A; jb4 13:55 Body Mass Index 29.58 (75.75 kg, 160.02 cm) cm10 13:55 Pain Scale: Adult cm10 MDM: 14:05 Patient medically screened. rt 17:09 Differential diagnosis: Pneumonia, pneumothorax, pulmonary embolism, bronchospasm. rt Antibiotic administration: 17:10 Data reviewed: vital signs, nurses notes, lab test result(s), EKG, radiologic studies. rt Consideration of Admission/Observation Patient was admitted/placed on observation. Management of patient was discussed with the following: Primary Care Provider: Agrees to admit. I considered the following discharge prescriptions or medication management in the emergency department Medications were administered in the Emergency Department. See MAR. Independent interpretation of the following test(s) in the Emergency Department X-Ray: My interpretation is Right lower lobe consolidation seen on interpretation of the x-ray images. Test considered but Not performed: CT: Symptoms most consistent with pneumonia, CT angiogram not indicated to rule pulmonary embolism. Care significantly affected by the following chronic conditions: Chronic Obstructive Pulmonary Disease. Counseling: I had a detailed discussion with the patient and/or guardian regarding the historical points, exam findings, and any diagnostic results supporting the discharge/admit diagnosis, lab results, radiology results, the need for further work-up and treatment in the hospital. Response to treatment: the patient's symptoms have markedly improved after treatment. 07/09 14:13 Order name: Basic Metabolic Panel; Complete Time: 14:55 rt 07/09 14:13 Order name: CBC with Diff; Complete Time: 14:35 rt 07/09 14:13 Order name: D-Dimer; Complete Time: 14:55 rt 07/09 14:13 Order name: LFT's; Complete Time: 14:55 rt 07/09 14:13 Order name: Magnesium; Complete Time: 14:55 rt 07/09 14:13 Order name: NT PRO-BNP; Complete Time: 14:55 rt 07/09 14:13 Order name: Troponin HS; Complete Time: 14:55 rt 07/09 17:18 Order name: Urinalysis w/ reflexes EDMS 07/09 17:18 Order name: CBC with Automated Diff EDMS 07/09 17:18 Order name: CBC with Automated Diff EDMS 07/09 17:18 Order name: Comprehensive Metabolic Panel EDMS 07/09 17:18 Order name: Comprehensive Metabolic Panel EDMS 07/09 14:13 Order name: XRAY Chest (1 view); Complete Time: 16:23 rt 07/09 14:13 Order name: EKG; Complete Time: 14:14 rt 07/09 17:18 Order name: Regular EDMS 07/09 14:13 Order name: Cardiac monitoring; Complete Time: 14:16 rt 07/09 14:13 Order name: EKG - Nurse/Tech; Complete Time: 14:31 rt 07/09 14:13 Order name: IV Saline Lock; Complete Time: 14:24 rt 07/09 14:13 Order name: Labs collected and sent; Complete Time: 14:24 rt 07/09 14:13 Order name: O2 Per Protocol; Complete Time: 14:16 rt 07/09 14:13 Order name: O2 Sat Monitoring; Complete Time: 14:16 rt EC:52 Rate is 67 beats/min. Rhythm is regular, Normal Sinus Rhythm with No ectopy. QRS Sibley rt is Normal. AL interval is normal. QRS interval is normal. QT interval is normal. No Q waves. Clinical impression: NSR w/ Non-specific ST/T Changes. Administered Medications: 14:28 Drug: DuoNeb Nebulize (3:1) (2.5 mg - 0.5 mg) 3 ml Route: Nebulizer; ko1 14:28 Drug: MethylPrednisoLONE IVP 125 mg Route: IVP; Site: right antecubital; ko1 17:10 CANCELLED (Physician Discretion): Meropenem IV 1 grams IV at calculated rate once; (mix rt in NS 100 mL) 17:10 CANCELLED (Physician Discretion): vancoMYCIN IVPB 1 grams IVPB once over 2 hrs rt 17:34 Drug: LevaQUIN IVPB 750 mg Route: IVPB; Site: right antecubital; ko1 Disposition Summary: 07/09/23 17:09 Hospitalization Ordered Hospitalization Status: Inpatient Admission rt Provider: Atif Us rt [facility] rt Condition: Stable rt Problem: new rt Symptoms: have improved rt Bed/Room Type: Standard rt Room Assignment: 405(07/09/23 18:49) bd Diagnosis - Pneumonia, unspecified organism rt - Hypoxemia rt Forms: - Medication Reconciliation Form rt - SBAR form rt - Leadership Thank You Letter rt Signatures: Dispatcher [employer] EDMS Feli Davis bd Roz Ruth RN RN ko1 Jacques Lang MD MD rt Kaitlynn Gudino RN RN cm10 Corrections: (The following items were deleted from the chart) 17:10 17:07 Meropenem IV 1 grams IV at calculated rate once; (mix in NS 100 mL) ordered. rt rt 17:10 17:07 vancoMYCIN IVPB 1 grams IVPB once over 2 hrs ordered. rt rt 18:49 17:09 rt bd
[2023-07-09] MEDS ORDERED: ALBUTEROL 2.5 MG/3 ML NEB SOL NEB PRN (17:15)
[2023-07-09] MEDS ORDERED: Levofloxacin 750mg IV 750 MG/150 ML BAG IV ONE (17:49)
[2023-07-09] MEDS ORDERED: ACETAMINOPHEN 325 MG TABLET PO PRN (21:58)
[2023-07-09] MEDS ORDERED: NA CHLORIDE 0.9% 1,000 ML IV SCH (22:00)
[2023-07-09] MEDS: TRAZODONE 50 MG TABLET PO SCH (22:34)
[2023-07-09 23:12] VITALS: BMI 29.5
[2023-07-10] MEDS: ALBUTEROL 2.5 MG/3 ML NEB SOL NEB SCH ×6 (01:42→20:25)
[2023-07-10 06:10] LABS: Absolute Lymphocytes (CBC) 1.5 K/uL (0.7-4.9); Hematocrit 42.6 % (36.0-45.0); Lymphocytes % 11.7 % (15.3-44.8); MCV 93.3 fL (80-100); MPV 7.7 fL (7.6-11.3); Platelets 328 thou/uL (152-406); RBC Red Blood Cell Count 4.57 M/uL (3.86-4.86)
[2023-07-10 06:39] LABS: Albumin 3.2 g/dL (3.4-5.0); Bilirubin Total 0.3 mg/dL (0.2-1.0); Potassium 4.1 mEq/L (3.5-5.1); Protein, Total 6.7 g/dL (6.4-8.2)
[2023-07-10] MEDS ORDERED: ALBUTEROL 2.5 MG/3 ML NEB SOL NEB SCH (08:00)
[2023-07-10] MEDS: ENOXAPARIN 40 MG/0.4 ML SQ SCH (08:29)
[2023-07-10] MEDS: DULOXETINE 30 MG CAP PO SCH (08:29)
[2023-07-10] MEDS ORDERED: METHYLPREDNISOLONE 125 MG INJ IV ONE ×2 (09:00→17:51)
[2023-07-10] MEDS: IPRATROPIUM BROM 0.5MG/2.5ML NEB SCH ×3 (09:15→20:25)
[2023-07-10] MEDS ORDERED: ALBUTEROL 2.5 MG/3 ML NEB SOL NEB PRN ×2 (10:00→14:00)
--- NOTE | 2023-07-10 12:25 | RAD REPORT ---
EXAM DESCRIPTION: RAD - Chest Pa And Lat (2 Views) - 07/10/2023 12:09 pm CLINICAL HISTORY: Pneumonia COMPARISON: Chest Single View dated 07/09/2023; Chest Pa And Lat (2 Views) dated 12/30/2016; Chest Pa A nd Lat (2 Views) dated 07/18/2016; CHEST PA AND LAT 2 VIEW dated 02/10/2010 TECHNIQUE: PA and lateral views of the chest were obtained. FINDINGS: The lungs are clear. Hyperinflation and chronic mild interstitial changes suggestive of CO PD. Heart size is normal and central vasculature is within normal limits. No pleural effusion or pneu mothorax seen. No acute bony finding noted. IMPRESSION: No acute cardiopulmonary process. Findings suggestive of COPD.
[2023-07-10 13:48] LABS: Specific Gravity 1.022 (1.005-1.030); Urine Bilirubin NEGATIVE (Negative); Urine Blood Negative (Negative); Urine Clarity Clear (Clear); Urine Color Yellow (Yellow); Urine Glucose NEGATIVE (Negative); Urine Protein NEGATIVE (Negative); Urine Urobilinogen 1+ (Normal); Urine pH 6.5 (5.0-7.0)
--- NOTE | 2023-07-10 17:30 | EKG ---
Test Date: 2023-07-09 Test Time: 14:35:16 Car Chaser: ROCHELLE MEASUREMENT RESULTS: Intervals: Rate: 67 VA: 142 QRSD: 70 QT: 394 QTc: 416 Nebo: P: 68 VA: 142 QRS: 60 T: 59 INTERPRETIVE STATEMENTS: Normal sinus rhythm Possible Anterior infarct, age undetermined Abnormal ECG No previous ECG available for comparison Electronically Signed On 07-10-23 17:27:47 CDT by Santy Ordonez
[2023-07-10] MEDS ORDERED: Levofloxacin 750mg IV 750 MG/150 ML BAG IV SCH (18:00)
--- NOTE | 2023-07-10 18:48 | RAD REPORT ---
EXAM DESCRIPTION: CTAbdomen Pelvis Wo Contrast - 07/10/2023 6:18 pm CLINICAL HISTORY: weight loss,appetite loss COMPARISON: Abdomen W Contrast dated 10/31/2020; Abdomen Pelvis W Contrast dated 07/18/2016 TECHNIQUE: CT of the abdomen and pelvis was performed. All CT scans are performed using dose optimization technique as appropriate and may include automated exposure control or mA/KV adjustment according to patient size. FINDINGS: Lower chest: Mitral annular calcifications. Liver: No acute abnormality or suspicious lesions. Biliary: No biliary ductal dilatation. Stomach: No significant focal abnormality. Duodenum: No significant focal abnormality. Pancreas: No significant abnormality. Spleen: No significant abnormality. Adrenal: No suspicious lesions. Kidney/ureter: No hydronephrosis. 2 mm stone versus parenchymal calcification in the upper pole the l eft kidney. Too small to characterize and/or benign appearing renal lesions are noted. Retroperitoneum: No retroperitoneal adenopathy. Vascular: No aneurysm. Atherosclerosis . Bowel: No significant focal abnormality. Diverticulosis. No evidence of acute diverticulitis. Peritoneum: No ascites or free air. Bladder: Grossly unremarkable. Reproductive: No adnexal masses. Bones: No acute fracture. Severe right hip degenerative changes. Multilevel degenerative changes are present in the spine. Other: n/a IMPRESSION: No acute intra-abdominal or pelvic finding. No specific CT findings to explain weight lo ss.
[2023-07-10] MEDS: TRAZODONE 50 MG TABLET PO SCH (20:48)
[2023-07-11] MEDS: IPRATROPIUM BROM 0.5MG/2.5ML NEB SCH ×2 (02:40→07:15)
[2023-07-11] MEDS: ALBUTEROL 2.5 MG/3 ML NEB SOL NEB SCH ×2 (02:40→07:15)
--- NOTE | 2023-07-11 04:57 | PN ---
Date of Progress Note: 07/10/2023 The patient states she feels considerably better. Especially after the steroid doses, she is still a norectic. She has continued to have weight loss. Workup today including scopes number of years ago which is when the weight loss started, have been negative; however, due to the persistence, warrants at least a CAT scan and probable scoping procedures depending on the outcome. As far as her chest is concerned, her x-ray is better. Clinically, I feel was in acute exacerbation of COPD and will leave a consult for Dr. Obregon. States the cough is now nonproductive. She is no more short of breath and if she continues with this improvement with decreasing steroid doses, she could be discharged in a.m. HR/MODL Voice ID: [id number] Report ID: [id number]
[2023-07-11 04:58] LABS: Absolute Lymphocytes (CBC) 1.3 K/uL (0.7-4.9); Lymphocytes % 8.4 % (15.3-44.8); MCV 92.8 fL (80-100); MPV 7.9 fL (7.6-11.3); Platelets 298 thou/uL (152-406); RBC Red Blood Cell Count 4.42 M/uL (3.86-4.86)
[2023-07-11 05:01] LABS: Albumin 3.2 g/dL (3.4-5.0); Bilirubin Total 0.2 mg/dL (0.2-1.0); Potassium 4.1 mEq/L (3.5-5.1); Protein, Total 6.5 g/dL (6.4-8.2)
[2023-07-11 05:28] LABS: Blood Morphology Comment NOT SEEN (NOT SEEN); Platelet Estimate ADEQ
[2023-07-11] MEDS: ENOXAPARIN 40 MG/0.4 ML SQ SCH (07:57)
[2023-07-11] MEDS: DULOXETINE 30 MG CAP PO SCH (07:57)
[2023-07-11 09:03] VITALS: BP 120/59; TEMP 97.7
[2023-07-11] MEDS ORDERED: DULERA 200/5 (MOMETASONE/FORMOTEROL) INHALER IH SCH (11:10)
--- NOTE | 2023-07-11 11:50 | P.CNS ---
Date of Consult: 07/11/23 Reason for Consult: COPD exacerbation Chief Complaint: Shortness of breath History of Present Illness: Patient is 62 years of age a very heavy smoker. With shortness of breath smokes 1 pack a day uses nebulizers at home for inhalers in addition patient has lost 100 pounds in weight has any fever or chills feels a little better Allergies Penicillins Allergy (Verified 07/09/23 18:50) Rash prednisone Allergy (Verified 07/09/23 18:51) Shortness of breath lisinopril Adverse Reaction (Verified 07/09/23 18:51) Shortness of breath Home Medications: Albuterol Neb [Proventil 0.083% Neb Soln] 2.5 mg IH Q6H 07/09/23 Duloxetine HCl [Cymbalta] 60 mg PO DAILY 07/09/23 Ferrous Sulfate [Ferrous Sulfate*] 325 mg PO DAILY 07/09/23 Gabapentin 300 mg PO DAILY 07/09/23 Omeprazole [Prilosec] 40 mg PO DAILY 07/09/23 Trazodone HCl 100 mg PO BEDTIME 07/09/23 hydrOXYzine HCL [Atarax*] 25 mg PO BIDP PRN 07/09/23 levoFLOXacin [Levaquin*] 500 mg PO DAILY 7 Days #7 tab 07/11/23 predniSONE [Prednisone*] 20 mg PO BID 14 Days #7 tab 07/11/23 - Past Medical/Surgical History Diabetic: No -: COPD - Social History Smoking Status: Current every day smoker Alcohol use: No CD- Drugs: No Caffeine use: Yes Place of Residence: Home Review of Systems 10-point ROS is otherwise unremarkable General: Weakness Respiratory: Cough, Shortness of Breath Physical Examination Temp Pulse Resp BP Pulse Ox 97.7 F 83 16 120/59 L 92 07/11/23 08:00 07/11/23 08:00 07/11/23 08:00 07/11/23 08:00 07/11/23 08:00 General: Alert, Oriented x3 HEENT: Atraumatic Neck: Supple Respiratory: Expiratory wheezes Cardiovascular: No edema, Regular rate/rhythm, Normal S1 S2 Gastrointestinal: Normal bowel sounds, Soft and benign Musculoskeletal: No clubbing, No swelling - Problems (1) COPD exacerbation Current Visit: Yes Status: Acute Plan: Patient is 62 years of age admitted with COPD exacerbation heavy smoker nebulizer at home I recommend discharge on Dulera puffs twice a day in addition to prednisone and Augmentin patient has been counseled not to smoke CT of the abdomen pelvis is negative not sure about the etiology of her weight loss of ordered thyroid function test x-ray shows COPD changes no evidence of pneumonia or any obvious lung mass low-dose CT scan of the chest ordered from my office order some PFTs patient's vital signs are all stable for discharge does not qualify for home oxygen
[2023-07-11 12:18] VITALS: O2SAT 93
[2023-07-11 12:46] LABS: Thyroid Stimulating Hormone 0.137 uIU/mL (0.358-3.740)
--- NOTE | 2023-07-11 16:00 | DS ---
Date of Discharge: 07/11/2023 Hospital Course: Patient states she feels considerably better without any breathing or coughing prob lems. She was seen by Pulmonology who agreed with the diagnosis of acute exacerbation of COPD rather than infectious process, although the latter could have triggered this off as she did have what she felt was a flu episode a week or so prior to the acute exacerbations. She states she is not on any s teroids for her COPD for over a year. She states she had significant reaction to prednisone. Howeve r, she tolerated the IV Solu-Medrol well. Discussion was also held with regard to her weight loss as her CT scan of the abdomen and pelvis was noncontributory to this and she has been losing weight shama adily for a number of years now with negative workups including scopes, although I feel with the pers istence, she should probably be rescoped and this will be discussed with her when seen in the office next week. She was discharged on her inhalers, and she does have a nebulizer at home. [facility] To [facility] Dr. Madden in a couple weeks and me next week for possible injection of her l umbosacral spine and medication to control her nausea. Also, she thinks Zofran was not effective. T his will be discussed further when seen in the office. She had been on tramadol 3-4 times a day, now down to 1 a day and felt that probably whole day medication until reached resolution of this episode of COPD and discharged in good condition. HR/MODL Voice ID: [id number] Report ID: [id number]
== END 2023-07-11 14:40 | disposition home or self-care (01) | DRG 192 ==
LOC: ER 13:33 → ERHOLD 17:14 → 4TH 19:50
PROVIDERS: ADMIT Family Medicine; ATTEND Family Medicine
DX: J44.1 Chronic obstructive pulmonary disease with (acute) exacerbation (principal); F17.210 Nicotine dependence, cigarettes, uncomplicated; R09.02 Hypoxemia; Z88.0 Allergy status to penicillin; Z71.6 Tobacco abuse counseling; Z88.8 Allergy status to other drugs, medicaments and biological substances; Z79.52 Long term (current) use of systemic steroids; Z79.899 Other long term (current) drug therapy
CPT/HCPCS: 36415; 71045; 71046; 74176; 80048; 80053; 80076; 81003; 83735; 83880; 84439; 84443; 84484; 85025; 85379; 93005; 94640; 96374; 96375; 99285; J1650; J2930; J3535; J7030; J7613; J7644